=== PATIENT | male | born 1960 | race American Indian/Alaskan Native ===

== ENCOUNTER 2017-06-01 00:39 | Emergency (ER) | payer SELFPAY ==
--- NOTE | 2017-06-01 01:53 | XRay Report ---
FINAL REPORT EXAM: XR FEMUR 2+V LT HISTORY: Status post fall, with left leg pain. TECHNIQUE: Five radiographs of the left femur were obtained. No prior studies are available for comparison. FINDINGS: There is an intramedullary kandice within the left femoral shaft, with 1 distal and 2 proximal interlocking screws. The kandice transfixes a chronic fracture deformity of the proximal to mid femoral shaft, with moderate associated surrounding callus formation. No definite acute fracture is seen. There is no dislocation. There is moderate degenerative change at the left hip joint, with moderate marginal spurring, bony sclerosis, and moderate diffuse joint space narrowing. There are scattered faint vascular calcifications in the medial left thigh. IMPRESSION: 1. Status post placement of intramedullary kandice within the left femoral shaft, in anatomic alignment. 2. Chronic fracture deformity of the proximal to mid femoral shaft, with moderate surrounding callus formation. No definite acute fracture. 3. Moderate left hip osteoarthritis.
--- NOTE | 2017-06-01 01:58 | XRay Report ---
FINAL REPORT EXAM: XR PELVIS 1-2V HISTORY: Pelvic pain, status post fall. TECHNIQUE: A single frontal radiograph the pelvis was obtained. No prior studies are available for comparison. FINDINGS: There is no fracture or dislocation. There is partial visualization of an intramedullary kandice in the left femoral shaft, with 2 proximal interlocking screws. There are moderate degenerative changes at the left hip, with marginal spurring, subchondral cysts, bony sclerosis, and moderate diffuse joint space narrowing. Mild degenerative changes are also seen at the right hip. Mild enthesopathic changes are seen at the lateral aspects of the bilateral iliac bones. IMPRESSION: 1. No fracture or dislocation. 2. Left greater than right hip osteoarthritis.
[2017-06-01] MEDS ORDERED: DELTASONE PO ONE (07:48)
[2017-06-01] MEDS ORDERED: FLEXERIL PO ONE (07:48)
[2017-06-01] MEDS ORDERED: TORADOL IM ONE (07:48)
--- NOTE | 2017-06-01 07:53 | Emergency Department Report ---
HPI - General Chief Complaint: Extremity Injury, Lower Time Seen by Provider: 06/01/17 07:15 - HPI HPI: This is a 56-year-old male with a history of osteoarthritis and status post intramedullary kandice placement of the left femoral shaft presents to ED complaining of pain to his left lateral leg and hip x few weeks. Patient states he was at work when he slipped a couple of weeks ago. Patient states he said some pain to the leg and hand since the incident at work. Patient states he did not fall or sustain any injuries to the leg or hip. She states pain is sharp, throbbing, localized to his left hip as well as his left lateral leg. Patient states he stands a lot at work and this aggravates his hip pain. He denies fever/chills/nausea/vomiting/calf pain or swelling. ED Past Medical Hx - Past Medical History Previous Medical History?: No - Surgical History Past Surgical History?: Yes Additional Surgical History: kandice to left femur. - Social History Smoking Status: Current Every Day Smoker Substance Use Type: Alcohol - Medications Home Medications: Home Medications Medication Instructions Recorded Confirmed Last Taken Type Acetaminophen/Codeine [Tylenol 1 tab PO Q6H PRN #10 tab 06/01/17 Unknown Rx /Codeine # 3 tab] Cyclobenzaprine [Flexeril] 10 mg PO QHS PRN #24 tablet 06/01/17 Unknown Rx Diclofenac Potassium 50 mg PO BID #30 tablet 06/01/17 Unknown Rx ED Review of Systems ROS: Stated complaint: L LEG PAIN Other details as noted in HPI Constitutional: denies: chills, fever Eyes: denies: eye pain, eye discharge, vision change ENT: denies: ear pain, throat pain Respiratory: denies: cough, shortness of breath, wheezing Cardiovascular: denies: chest pain, palpitations Endocrine: no symptoms reported Gastrointestinal: denies: abdominal pain, nausea, diarrhea Genitourinary: denies: urgency, dysuria Musculoskeletal: arthralgia. denies: back pain, joint swelling Skin: denies: rash, lesions Neurological: denies: headache, weakness, paresthesias Psychiatric: denies: anxiety, depression Hematological/Lymphatic: denies: easy bleeding, easy bruising Physical Exam - Physical Exam Vital Signs: Vital Signs 06/01/17 00:44 Pulse Rate 77 Respiratory 18 Rate Blood Pressure 144/95 O2 Sat by Pulse 99 Oximetry Physical Exam: GENERAL: Alert and oriented x3, no apparent distress, Normal Gait, atraumatic. HEAD: Head is normocephalic and a-traumatic. LUNGS: Symetrical with respiration, No wheezing, no rales or crackles, CTAB. HEART: S1, S2 present, regular rate and rhythm without murmur, no rubs, no gallops. Non tender to palpation EXTREMITIES/MUSCULOSKELETAL: No cyanosis, clubbing, rash, lesions or edema. Full ROM bilaterally. UE/LE Pulses 2+ bilaterally. LE and UE 5+ strength bilaterally, straight leg raise positive left sided, all joints are intact, no swelling, calf nontender to palpation bilaterally, Homans sign negative bilaterally NEUROLOGIC: The patient is cooperative with no focal neurologic deficits. Normal speech. Normal sensation in bilateral upper and lower extremities, No loss of sensation, SKIN: Warm and dry, No lesions, No ulceration or induration present. ED Course Vital Signs 06/01/17 00:44 Pulse Rate 77 Respiratory 18 Rate Blood Pressure 144/95 O2 Sat by Pulse 99 Oximetry ED Medical Decision Making - Radiology Data Radiology results: report reviewed, image reviewed FINAL REPORT EXAM: XR PELVIS 1-2V HISTORY: Pelvic pain, status post fall. TECHNIQUE: A single frontal radiograph the pelvis was obtained. No prior studies are available for comparison. FINDINGS: There is no fracture or dislocation. There is partial visualization of an intramedullary kandice in the left femoral shaft, with 2 proximal interlocking screws. There are moderate degenerative changes at the left hip, with marginal spurring, subchondral cysts, bony sclerosis, and moderate diffuse joint space narrowing. Mild degenerative changes are also seen at the right hip. Mild enthesopathic changes are seen at the lateral aspects of the bilateral iliac bones. IMPRESSION: 1. No fracture or dislocation. 2. Left greater than right hip osteoarthritis. Transcribed By: [facility] Dictated By: MEL CASTRO MD Electronically Authenticated By: MEL CASTRO MD Signed Date/Time: 05/31/17 0794 - Medical Decision Making 56-year-old male presents to ED with chronic pain ED course: Patient received Toradol, Flexeril and prednisone in ED Femur x-ray in hip x-rays were obtained: see findings above Discussed the findings with the patient. Discussed the patient to follow up with an orthopedic/primary care physician to manage his osteoarthritis and chronic pain Vital signs are normalized and he is in no acute distress. Discussed with patient if symptoms worsen or new symptoms arise to return to ED Critical care attestation.: If time is entered above; I have spent that time in minutes in the direct care of this critically ill patient, excluding procedure time. ED Disposition Clinical Impression: Arthralgia of hip, left Osteoarthritis Qualifiers: Osteoarthritis location: hip Osteoarthritis type: unspecified Laterality: left Qualified Code(s): M16.12 - Unilateral primary osteoarthritis, left hip Disposition: TO HOME OR SELFCARE Is pt being admited?: No Does the pt Need Aspirin: No Condition: Stable Instructions: Lumbar Radiculopathy (ED), Arthralgia (ED) Additional Instructions: Take medication as prescribed Follow-up with orthopedics as referred for management Is any worsening symptoms or new symptoms develop return to ED Prescriptions: Cyclobenzaprine [Flexeril] 10 mg PO QHS PRN #24 tablet PRN Reason: Muscle Spasm Acetaminophen/Codeine [Tylenol /Codeine # 3 tab] 1 tab PO Q6H PRN #10 tab PRN Reason: Pain Diclofenac Potassium 50 mg PO BID #30 tablet Referrals: PRIMARY CAREMD [Primary Care Provider] - 3-5 Days ORLANDO MAJOR MD [Staff Physician] - 3-5 Days TANIA MAJOR MD [Referring] - 3-5 Days [facility] [Outside] - 3-5 Days [facility] [Outside] - 3-5 Days Forms: Work/School Release Form(ED) Time of Disposition: 08:09
[2017-06-01 08:31] VITALS: BP 120/99
== END 2017-06-01 08:33 | disposition home or self-care (01) ==
LOC: ED 00:39
DX: M16.12 Unilateral primary osteoarthritis, left hip (principal); F17.200 Nicotine dependence, unspecified, uncomplicated; W01.0XXA Fall on same level from slipping, tripping and stumbling without subsequent striking against object, initial encounter; Y93.89 Activity, other specified; Y92.89 Other specified places as the place of occurrence of the external cause; Y99.8 Other external cause status
CPT/HCPCS: 72170; 73552; 96372; 99283; J1885; J7512

== ENCOUNTER 2017-07-30 07:16 | Emergency (ER) | payer OTHER ==
[2017-07-30 07:27] VITALS: BP 147/77
[2017-07-30] MEDS ORDERED: PERCOCET 5/325 PO ONE (08:51)
[2017-07-30] MEDS ORDERED: TORADOL IM ONE (08:51)
--- NOTE | 2017-07-30 09:14 | Emergency Department Report ---
ED Lower Extremity HPI - General Chief Complaint: Pain General Stated Complaint: HIP PAIN Time Seen by Provider: 07/30/17 08:50 Source: patient Mode of arrival: Ambulatory Limitations: No Limitations - History of Present Illness Initial Comments: Reports injuring L hip a couple months ago and pain flared last night. No new trauma. Intermittent radiation down leg. No back pain. No numbness. MD Complaint: hip injury -: month(s) Injury: Hip: Left Type of Injury: unknown Place: home Severity: moderate Severity scale (0 -10): 7 Improves With: immobilization Worsens With: movement Context: fall Associated Symptoms: denies: swelling, numbness, tingling - Related Data Previous Rx's Medication Instructions Recorded Last Taken Type Acetaminophen/Codeine [Tylenol 1 tab PO Q6H PRN #10 tab 06/01/17 Unknown Rx /Codeine # 3 tab] Cyclobenzaprine [Flexeril] 10 mg PO QHS PRN #24 tablet 06/01/17 Unknown Rx Diclofenac Potassium 50 mg PO BID #30 tablet 07/30/17 Unknown Rx oxyCODONE /ACETAMINOPHEN [Percocet 1 tab PO Q6HR PRN #12 tablet 07/30/17 Unknown Rx 5/325] Allergies Allergy/AdvReac Type Severity Reaction Status Date / Time No Known Allergies Allergy Verified 07/30/17 07:21 ED Review of Systems ROS: Stated complaint: HIP PAIN Other details as noted in HPI Comment: All other systems reviewed and negative Constitutional: denies: chills, fever Eyes: denies: eye pain, eye discharge, vision change ENT: denies: ear pain, throat pain Respiratory: denies: cough, shortness of breath, wheezing Cardiovascular: denies: chest pain, palpitations Endocrine: no symptoms reported Gastrointestinal: denies: abdominal pain, nausea, diarrhea Genitourinary: denies: urgency, dysuria Musculoskeletal: as per HPI, arthralgia. denies: back pain, joint swelling Skin: denies: rash, lesions Neurological: denies: headache, weakness, paresthesias Psychiatric: denies: anxiety, depression Hematological/Lymphatic: denies: easy bleeding, easy bruising ED Past Medical Hx - Past Medical History Previous Medical History?: No - Surgical History Past Surgical History?: Yes Additional Surgical History: [place] to left femur. - Social History Smoking Status: Current Every Day Smoker Substance Use Type: None - Medications Home Medications: Home Medications Medication Instructions Recorded Confirmed Last Taken Type Acetaminophen/Codeine [Tylenol 1 tab PO Q6H PRN #10 tab 06/01/17 Unknown Rx /Codeine # 3 tab] Cyclobenzaprine [Flexeril] 10 mg PO QHS PRN #24 tablet 06/01/17 Unknown Rx Diclofenac Potassium 50 mg PO BID #30 tablet 07/30/17 Unknown Rx oxyCODONE /ACETAMINOPHEN [Percocet 1 tab PO Q6HR PRN #12 tablet 07/30/17 Unknown Rx 5/325] ED Physical Exam - General Limitations: No Limitations General appearance: alert, in no apparent distress - Head Head exam: Present: atraumatic, normocephalic - Eye Eye exam: Present: normal appearance, PERRL, EOMI - ENT ENT exam: Present: mucous membranes moist - Neck Neck exam: Present: normal inspection - Respiratory Respiratory exam: Present: normal lung sounds bilaterally. Absent: respiratory distress - Cardiovascular Cardiovascular Exam: Present: regular rate, normal rhythm. Absent: systolic murmur, diastolic murmur, rubs, gallop - GI/Abdominal GI/Abdominal exam: Present: soft, normal bowel sounds - Rectal Rectal exam: Present: deferred - Extremities Exam Extremities exam: Present: normal inspection, other (painful but full ROM to L hip. Exam otherwise normal. CMS intact. ) - Back Exam Back exam: Present: normal inspection - Neurological Exam Neurological exam: Present: alert, oriented X3 - Psychiatric Psychiatric exam: Present: normal affect, normal mood - Skin Skin exam: Present: warm, dry, intact, normal color. Absent: rash ED Course Vital Signs 07/30/17 07:19 Temperature 98.2 F Pulse Rate 73 Respiratory 18 Rate Blood Pressure 147/77 O2 Sat by Pulse 97 Oximetry - Reevaluation(s) Reevaluation #1: 07/30/17 10:23 Pt is in NAD and stable for d/c. ED Lower Extremity MDM - Radiology Data Radiology results: report reviewed possible early AVN - Medical Decision Making Imaging shows possible early AVN. Pt reports he has been having pain and is supposed to be having an MRI but has not done so yet. Percocet/Toradol. provided complete pain relief. Discussed results and importance of close follow up. - Differential Diagnosis arthritis, AVN Critical care attestation.: If time is entered above; I have spent that time in minutes in the direct care of this critically ill patient, excluding procedure time. ED Disposition Clinical Impression: Left hip pain, AVN (avascular necrosis of bone) Disposition: TO HOME OR SELFCARE Is pt being admited?: No Condition: Stable Instructions: Arthralgia (ED) Prescriptions: Diclofenac Potassium 50 mg PO BID #30 tablet oxyCODONE /ACETAMINOPHEN [Percocet 5/325] 1 tab PO Q6HR PRN #12 tablet PRN Reason: Pain Referrals: PRIMARY CARE, [Primary Care Provider] - 3-5 Days ORLANDO MAJOR MD [Staff Physician] - 2-3 Days Time of Disposition: 10:26
--- NOTE | 2017-07-30 09:57 | XRay Report ---
LEFT HIP, 2 VIEWS History: Left hip pain after fall. Findings: Compared to left femur films dated 06/01/17. Bone mineralization is normal. There are moderate osteoarthritic changes at the left hip. There is sclerosis of the superior left femoral head which could represent early osteonecrosis. There is no evidence for fracture or malalignment. Intramedullary kandice within the left femur securing a proximal left femur fracture is noted. The proximal femur fracture appears to be remodeling with signs of healing since the previous exam. Impression: Moderate osteoarthritic changes at the left hip. Question early osteonecrosis the left femoral head. No acute injury identified.
== END 2017-07-30 10:40 | disposition home or self-care (01) ==
LOC: ED 07:16
DX: M87.88 Other osteonecrosis, other site (principal); F17.210 Nicotine dependence, cigarettes, uncomplicated
CPT/HCPCS: 73502; 96372; 99283; J1885

== ENCOUNTER 2017-09-09 08:12 | Emergency (ER) | payer SELFPAY ==
[2017-09-09 08:42] VITALS: BP 134/94
[2017-09-09] MEDS ORDERED: NORCO 5/325 PO ONE (09:23)
[2017-09-09] MEDS ORDERED: FLEXERIL PO ONE (09:23)
--- NOTE | 2017-09-09 09:24 | Emergency Department Report ---
ED Lower Extremity HPI - General Chief Complaint: Extremity Injury, Lower Stated Complaint: L HIP PAIN Time Seen by Provider: 09/09/17 08:55 Source: patient, old records reviewed Mode of arrival: Ambulatory (w limp) Limitations: Physical Limitation - History of Present Illness MD Complaint: hip injury, fall -: Sudden (fall at work in May) Injury: Hip: Left Type of Injury: blunt Place: work Improves With: nothing Worsens With: weight bearing, movement Context: fall Associated Symptoms: unable to bear weight (wo pain), ambulatory (w limp), other (lip). denies: snap/pop sensation, swelling, numbness, tingling Treatments Prior to Arrival: cold therapy, NSAIDS, other (er visit; ortho visit ; work comp md visit; still w terrible pain to r hip) - Related Data Previous Rx's Medication Instructions Recorded Last Taken Type Cyclobenzaprine [Flexeril] 10 mg PO BID PRN #12 tablet 09/09/17 Unknown Rx HYDROcodone/APAP 5-325 [[place] 1 each PO Q6HR PRN #10 tablet 09/09/17 Unknown Rx 5/325] Allergies Allergy/AdvReac Type Severity Reaction Status Date / Time No Known Allergies Allergy Verified 07/30/17 07:21 ED Review of Systems ROS: Stated complaint: L HIP PAIN Other details as noted in HPI Comment: All other systems reviewed and negative Musculoskeletal: other (l hip pain since may 2017) ED Past Medical Hx - Past Medical History Previous Medical History?: Yes Hx Hypertension: Yes - Surgical History Additional Surgical History: [place] to left femur. p fx 6 y ago; until time of fall in May it has not given him problems. - Social History Smoking Status: Current Every Day Smoker Substance Use Type: Alcohol (social only) - Medications Home Medications: Home Medications Medication Instructions Recorded Confirmed Last Taken Type Cyclobenzaprine [Flexeril] 10 mg PO BID PRN #12 tablet 09/09/17 Unknown Rx HYDROcodone/APAP 5-325 [[place] 1 each PO Q6HR PRN #10 tablet 09/09/17 Unknown Rx 5/325] ED Physical Exam - General Limitations: Physical Limitation General appearance: alert - Head Head exam: Present: atraumatic - Eye Eye exam: Present: PERRL, EOMI - ENT ENT exam: Present: mucous membranes moist - Neck Neck exam: Present: normal inspection - Respiratory Respiratory exam: Present: normal lung sounds bilaterally - Cardiovascular Cardiovascular Exam: Present: regular rate - GI/Abdominal GI/Abdominal exam: Present: soft - Extremities Exam Extremities exam: Present: full ROM (pain w any weight bearing or movement of r hip), normal capillary refill. Absent: pedal edema, joint swelling, calf tenderness - Expanded Lower Extremity Exam Left Hip exam: Present: tenderness. Absent: full ROM (limited abduction; limited movement by pain), swelling, abrasion, laceration, ecchymosis, deformity, crepidus, dislocation, erythema, external rotation, internal rotation, shortening, pelvic stability Upper Leg exam: Present: normal inspection, deformity (SCAR). Absent: full ROM , tenderness, swelling, abrasion, laceration, ecchymosis, crepidus, dislocation , erythema - Back Exam Back exam: Present: normal inspection - Neurological Exam Neurological exam: Present: alert, oriented X3, CN II-XII intact, normal gait, reflexes normal - Psychiatric Psychiatric exam: Present: normal affect, normal mood - Skin Skin exam: Present: warm, dry, intact, normal color ED Course Vital Signs 09/09/17 09/09/17 08:36 08:41 Temperature 97.9 F 97.9 F Pulse Rate 90 90 Respiratory 20 20 Rate Blood Pressure 134/94 Blood Pressure 134/94 [Left] O2 Sat by Pulse 99 99 Oximetry - Reevaluation(s) Reevaluation #1: PT TO ER W SEVERE HIP PAIN HE HAS HAD SURG IN PAST AND WAS IN HIS USUAL STATE OF HEALTH UNTIL HE HAD A FALL AT WORK. SURG WAS TO FEMUR 6 Y AGO HE HAS BEEN SEEN HERE FOR THIS FALL SEVERAL TIMES PRIOR TO FALL PT WORKED AND DID NOT USE CANE; AND DID NOT HAVE DAILY PAIN PER PT NOW HE IS USING CANE. SITTING IN CHAIR IN GUARDED POSITION AND GRIMACES WITH ANY MOVEMENT XRAY NOTED CT COMPLETED DISCUSSED WITH DR MCKINLEY DISCUSSED WITH DR MAJOR WHO REVIEWED THE CT- DJD, SPURS, SCLEROTIC HEAD, SUBCOND CYST, MINIMAL JOINT SPACE; NO ACUTE FX PER DR MAJOR PT WAS MEDICATED WHILE HERE WITH MINIMAL RELIEF DR MAJOR WILL SEE IN THE OFFICE DC HOME W DC POC. 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 see note - Differential Diagnosis ro acute fracture Critical care attestation.: If time is entered above; I have spent that time in minutes in the direct care of this critically ill patient, excluding procedure time. ED Disposition Clinical Impression: Hip pain Disposition: DC- TO HOME OR SELFCARE Is pt being admited?: No Does the pt Need Aspirin: No Condition: Stable Instructions: Arthralgia (ED) Additional Instructions: MEDS ORDERED TODAY FOLLOW UP WITH DR MAJOR- HIS OFFICE IS EXPECTING YOU TO CALL REST Prescriptions: Cyclobenzaprine [Flexeril] 10 mg PO BID PRN #12 tablet PRN Reason: Pain HYDROcodone/APAP 5-325 [[place] 5/325] 1 each PO Q6HR PRN #10 tablet PRN Reason: Pain Referrals: PRIMARY CAREMD [Primary Care Provider] - 3-5 Days ORLANDO MAJOR MD [Staff Physician] - 3-5 Days TC ESCALANTE MD [Staff Physician] - 3-5 Days Forms: Work/School Release Form(ED) Time of Disposition: 10:27
--- NOTE | 2017-09-09 09:24 | XRay Report ---
LEFT HIP, 2 views: History: Left hip pain. No significant change is appreciated since 07/30/17. There are moderate osteoarthritic changes of the left hip. No evidence for fracture or malalignment. Possible AVN findings are stable. Partially imaged is an intramedullary kandice within the left femoral shaft. IMPRESSION: Osteoarthritic changes at the left hip. No change since 07/30/17.
--- NOTE | 2017-09-09 09:58 | Cat Scan Report ---
CT LOWER EXTREMITY LEFT WITHOUT CONTRAST History: Left hip pain, progressive. Technique: Helical CT through the pelvis and left hip with sagittal and coronal reformatted images. Findings: The correlation is made to previous x-rays of the left hip. CT demonstrates moderate osteoarthritic changes at the left hip. There is joint space narrowing, osteophyte formation and subchondral cyst formation. There is also a 1 x 2 cm area of sclerosis in the left femoral head consistent with osteonecrosis. There is no evidence for fracture, dislocation or suspicious bone lesion. The pelvic bones are intact. The soft tissues are within normal limits. An internally fixated left femoral shaft fracture is remodeling. Impression: Moderate osteoarthritic changes at the left hip. Focal avascular necrosis the left femoral head. No acute process identified.
[2017-09-09 10:07] LABS: Basophils # (Auto) 0.1 K/mm3 (0.0-0.1); Basophils % (Auto) 0.7 % (0.0-1.8); Eosinophils # (Auto) 0.1 K/mm3 (0.0-0.4); Eosinophils % (Auto) 0.6 % (0.0-4.3); Hematocrit 40.4 % (35.5-45.6); Hemoglobin 13.5 gm/dl (11.8-15.2); Lymphocytes # (Auto) 2.4 K/mm3 (1.2-5.4); Lymphocytes % (Auto) 30.1 % (13.4-35.0); Mean Corpuscular HGB Conc 34 % (32-34); Mean Corpuscular Hemoglobin 29 pg (28-32); Mean Corpuscular Volume 85 fl (84-94); Monocytes # (Auto) 0.5 K/mm3 (0.0-0.8); Monocytes % (Auto) 6.3 % (0.0-7.3); Platelet Count 211 K/mm3 (140-440); Red Blood Count 4.73 M/mm3 (3.65-5.03); Red Cell Distribution Width 16.2 % (13.2-15.2)
[2017-09-09] MEDS ORDERED: DELTASONE PO ONE (10:15)
[2017-09-09 10:26] LABS: Alanine Aminotransferase 15 units/L (7-56); Albumin 4.4 g/dL (3.9-5); BUN/Creatinine Ratio 13; Blood Urea Nitrogen 13 mg/dL (9-20); Calcium 9.8 mg/dL (8.4-10.2); Hemolysis Index 6
== END 2017-09-09 12:09 | disposition home or self-care (01) ==
LOC: ED 08:12
DX: M25.552 Pain in left hip (principal); I10 Essential (primary) hypertension; F17.200 Nicotine dependence, unspecified, uncomplicated; Z98.890 Other specified postprocedural states; W19.XXXA Unspecified fall, initial encounter
CPT/HCPCS: 36415; 73502; 73700; 80053; 85025; 99284; J7512

== ENCOUNTER 2017-10-05 10:42 | Emergency (ER) | payer OTHER ==
[2017-10-05 11:03] VITALS: BP 136/84
[2017-10-05 11:25] LABS: Basophils % (Auto) 0.6 % (0.0-1.8); Eosinophils # (Auto) 0.1 K/mm3 (0.0-0.4); Eosinophils % (Auto) 1.1 % (0.0-4.3); Hematocrit 39.3 % (35.5-45.6); Hemoglobin 13.1 gm/dl (11.8-15.2); Lymphocytes # (Auto) 2.8 K/mm3 (1.2-5.4); Lymphocytes % (Auto) 35.3 % (13.4-35.0); Mean Corpuscular HGB Conc 33 % (32-34); Mean Corpuscular Hemoglobin 29 pg (28-32); Mean Corpuscular Volume 86 fl (84-94); Monocytes # (Auto) 0.7 K/mm3 (0.0-0.8); Monocytes % (Auto) 8.8 % (0.0-7.3); Platelet Count 200 K/mm3 (140-440); Red Blood Count 4.55 M/mm3 (3.65-5.03); Red Cell Distribution Width 16.1 % (13.2-15.2)
--- NOTE | 2017-10-05 11:30 | XRay Report ---
ROUTINE CHEST, TWO VIEWS: HISTORY: Shortness of breath. The trachea, heart, mediastinal contour, lung gonzalez and bony thorax are unremarkable. IMPRESSION: Unremarkable chest x-ray.
[2017-10-05 11:44] LABS: BUN/Creatinine Ratio 11; Blood Urea Nitrogen 11 mg/dL (9-20); Calcium 9.2 mg/dL (8.4-10.2); Hemolysis Index 8
== END 2017-10-05 17:12 | disposition left against medical advice (07) ==
LOC: ED 10:42
DX: R07.9 Chest pain, unspecified (principal); Z53.21 Procedure and treatment not carried out due to patient leaving prior to being seen by health care provider
CPT/HCPCS: 36415; 71046; 80048; 84484; 85025; 93005; 93010

== ENCOUNTER 2017-10-13 08:54 | Emergency (ER) | payer SELFPAY ==
[2017-10-13 09:14] VITALS: BP 146/100
== END 2017-10-13 14:38 ==
LOC: ED 08:54
DX: R05 Cough (principal); Z53.21 Procedure and treatment not carried out due to patient leaving prior to being seen by health care provider

== ENCOUNTER 2018-01-04 09:17 | Emergency (ER) | payer OTHER ==
[2018-01-04] MEDS ORDERED: TORADOL IM ONE (10:22)
--- NOTE | 2018-01-04 10:26 | Emergency Department Report ---
ED Extremity Problem HPI - General Chief complaint: Extremity Injury, Lower Stated complaint: HIP PAIN Time Seen by Provider: 01/04/18 10:15 Source: patient Mode of arrival: Ambulatory Limitations: No Limitations - History of Present Illness Initial comments: Patient is a 57-year-old -[place] male who is presenting with left hip pain. Patient has pain is constant in the left hip is states is a 10 out of 10 and however he is able to bear weight and walk therefore I do question his pain rating. Patient states he injured his left hip at work parking 5 months ago. Patient has been [place] disability doctor who does not have him on any pain meds. He has not had any physical therapy. Patient did see her orthopedic doctor was told he needed a hip replacement which is still pending. Patient states there is been no new injuries to the left hip and that he is here just mainly for pain control. - Related Data Previous Rx's Medication Instructions Recorded Last Taken Type Cyclobenzaprine [Flexeril] 10 mg PO BID PRN #12 tablet 09/09/17 Unknown Rx HYDROcodone/APAP 5-325 [Victor 1 each PO Q6HR PRN #10 tablet 09/09/17 Unknown Rx 5/325] Ibuprofen [Motrin] 600 mg PO Q8H PRN #20 tablet 01/04/18 Unknown Rx Allergies Allergy/AdvReac Type Severity Reaction Status Date / Time No Known Allergies Allergy Verified 01/04/18 09:20 ED Review of Systems ROS: Stated complaint: HIP PAIN Other details as noted in HPI Comment: All other systems reviewed and negative ED Past Medical Hx - Past Medical History Hx Hypertension: Yes - Surgical History Additional Surgical History: [place] to left femur. p fx 6 y ago; until time of fall in May it has not given him problems. - Social History Smoking Status: Current Every Day Smoker Substance Use Type: None - Medications Home Medications: Home Medications Medication Instructions Recorded Confirmed Last Taken Type Cyclobenzaprine [Flexeril] 10 mg PO BID PRN #12 tablet 09/09/17 Unknown Rx HYDROcodone/APAP 5-325 [Victor 1 each PO Q6HR PRN #10 tablet 09/09/17 Unknown Rx 5/325] Ibuprofen [Motrin] 600 mg PO Q8H PRN #20 tablet 01/04/18 Unknown Rx ED Physical Exam - General Limitations: No Limitations General appearance: alert, in no apparent distress - Head Head exam: Present: atraumatic, normocephalic - Eye Eye exam: Present: normal appearance - ENT ENT exam: Present: mucous membranes moist - Neck Neck exam: Present: normal inspection - Respiratory Respiratory exam: Present: normal lung sounds bilaterally. Absent: respiratory distress, wheezes, rales, rhonchi - Cardiovascular Cardiovascular Exam: Present: regular rate, normal rhythm. Absent: systolic murmur, diastolic murmur, rubs, gallop - GI/Abdominal GI/Abdominal exam: Present: soft, normal bowel sounds - Rectal Rectal exam: Present: deferred - Extremities Exam Extremities exam: Present: normal inspection, full ROM, tenderness (at the left hip there is tenderness to palpation. There is no erythema or rash under overlie scan. Patient is able to bear weight.) - Back Exam Back exam: Present: normal inspection - Neurological Exam Neurological exam: Present: alert, oriented X3 - Psychiatric Psychiatric exam: Present: normal affect, normal mood - Skin Skin exam: Present: warm, dry, intact, normal color. Absent: rash ED Course Vital Signs 01/04/18 09:21 Temperature 98.4 F Pulse Rate 60 Respiratory 16 Rate Blood Pressure 172/100 O2 Sat by Pulse 100 Oximetry ED Medical Decision Making - Medical Decision Making Patient was deemed a nonmedical emergency however the patient does have [employer] insurance and is elected to stay here hospital for treatment. I did explain to the patient that were not able to give narcotics for his chronic condition. Patient voiced understanding. Patient was given a Toradol shot and will be discharged home with Motrin. Critical care attestation.: If time is entered above; I have spent that time in minutes in the direct care of this critically ill patient, excluding procedure time. ED Disposition Clinical Impression: Hip arthritis Disposition: DC-01 TO HOME OR SELFCARE Is pt being admited?: No Does the pt Need Aspirin: No Condition: Stable Instructions: Osteoarthritis (ED) Prescriptions: Ibuprofen [Motrin] 600 mg PO Q8H PRN #20 tablet PRN Reason: Pain Referrals: KEVIN PALOMINO MD [Staff Physician] - 7-10 days (for primary care) ORLANDO MAJOR MD [Staff Physician] - 7-10 days (Orthopedic referral)
[2018-01-04 10:45] VITALS: BP 149/92
== END 2018-01-04 10:46 | disposition home or self-care (01) ==
LOC: ED 09:17
DX: M16.12 Unilateral primary osteoarthritis, left hip (principal); I10 Essential (primary) hypertension; F17.200 Nicotine dependence, unspecified, uncomplicated
CPT/HCPCS: 96372; 99282; J1885

== ENCOUNTER 2018-02-22 12:24 | Outpatient (CLI) | payer MEDICAID ==
--- NOTE | 2018-02-22 13:03 | XRay Report ---
ROUTINE CHEST, TWO VIEWS: HISTORY: Dysphagia unspecified. The trachea, heart, mediastinal contour, lung gonzalez and bony thorax are unremarkable. No change since 10/05/17. IMPRESSION: Unremarkable chest x-ray.
== END 2018-02-22 12:25 | disposition home or self-care (01) ==
LOC: XRAY 12:24
PROVIDERS: ATTEND Nurse Practitioner
DX: R13.10 Dysphagia, unspecified (principal); F17.210 Nicotine dependence, cigarettes, uncomplicated; I10 Essential (primary) hypertension
CPT/HCPCS: 71046

== ENCOUNTER 2018-04-05 12:21 | Outpatient (CLI) | payer MEDICAID ==
--- NOTE | 2018-04-05 14:44 | XRay Report ---
Bilateral feet: Bilateral foot pain. Routine 3 views are obtained bilaterally. The bones are well-mineralized and there is normal alignment and preservation of the joint. No swelling identified. Impression: Unremarkable exam for age. No evidence of arthritis.
== END 2018-04-05 12:22 | disposition home or self-care (01) ==
LOC: XRAY 12:21
PROVIDERS: ATTEND Nurse Practitioner
DX: M25.571 Pain in right ankle and joints of right foot (principal); L84 Corns and callosities; B35.1 Tinea unguium; I10 Essential (primary) hypertension; M16.12 Unilateral primary osteoarthritis, left hip; F17.210 Nicotine dependence, cigarettes, uncomplicated

== ENCOUNTER 2018-11-10 10:23 | Observation (INO) | payer MEDICAID ==
[2018-11-10 11:48] LABS: Basophils % (Auto) 0.7 % (0.0-1.8); Eosinophils % (Auto) 0.7 % (0.0-4.3); Hematocrit 37.4 % (35.5-45.6); Hemoglobin 12.5 gm/dl (11.8-15.2); Lymphocytes # (Auto) 2.3 K/mm3 (1.2-5.4); Lymphocytes % (Auto) 33.1 % (13.4-35.0); Mean Corpuscular HGB Conc 33 % (32-34); Mean Corpuscular Volume 84 fl (84-94); Monocytes # (Auto) 0.6 K/mm3 (0.0-0.8); Monocytes % (Auto) 9.2 % (0.0-7.3); Platelet Count 229 K/mm3 (140-440); Red Blood Count 4.44 M/mm3 (3.65-5.03); Red Cell Distribution Width 16.6 % (13.2-15.2)
[2018-11-10 12:05] LABS: BUN/Creatinine Ratio 9; Blood Urea Nitrogen 7 mg/dL (9-20); Calcium 9.1 mg/dL (8.4-10.2); Hemolysis Index 5
[2018-11-10] MEDS ORDERED: BABY ASPIRIN PO ONE (12:41)
--- NOTE | 2018-11-10 13:07 | Emergency Department Report ---
ED Chest Pain HPI - General Chief Complaint: Chest Pain Stated Complaint: CHEST PAIN/SOB Time Seen by Provider: 11/10/18 12:35 Source: patient Mode of arrival: Ambulatory Limitations: No Limitations - History of Present Illness Initial Comments: 58-year-old -[place] male presents to the emergency department with complaint of some shortness of breath and chest pain that has been going on since last evening. The chest pain is left-sided and started off as intermittent but has been consistent since earlier this morning. He took some aspirin last night without any relief. He denies any fever, nausea, vomiting, back pain or diaphoresis. He has a past medical history of ggx-sodknlh-nurixqczh diabetes, high cholesterol and hypertension. He is a tobacco smoker but denies any illicit drug use or abuse. No recent travel or sick contacts at home. Severity scale (0 -10): 9 - Related Data Home Medications Medication Instructions Recorded Confirmed Last Taken Atorvastatin Calcium [Lipitor] 40 mg PO HS 11/10/18 11/10/18 11/09/18 Metformin HCl [Metformin HCl ER] 500 mg PO QPM 11/10/18 11/10/18 11/09/18 Allergies Allergy/AdvReac Type Severity Reaction Status Date / Time No Known Allergies Allergy Verified 01/04/18 09:20 Heart Score - HEART Score History: Moderately suspicious EKG: Normal Age: 45-65 Risk factors: > 3 risk factors or hx of atherosclerotic disease Troponin: < normal limit HEART Score: 4 - Critical Actions Critical Actions: 4-6 pts:12-16.6% risk of adverse cardiac event. Should be admitted ED Review of Systems ROS: Stated complaint: CHEST PAIN/SOB Other details as noted in HPI Comment: All other systems reviewed and negative Constitutional: denies: chills, fever Eyes: denies: eye pain, vision change ENT: denies: ear pain, throat pain Respiratory: shortness of breath. denies: cough Cardiovascular: chest pain. denies: edema Gastrointestinal: denies: abdominal pain, vomiting Genitourinary: denies: dysuria, discharge Musculoskeletal: denies: back pain, arthralgia Skin: denies: rash, lesions Neurological: denies: headache, weakness ED Past Medical Hx - Past Medical History Previous Medical History?: Yes Hx Hypertension: Yes Hx Diabetes: Yes - Surgical History Past Surgical History?: Yes Additional Surgical History: [place] to left femur. p fx 6 y ago; until time of fall in May it has not given him problems. - Social History Smoking Status: Current Every Day Smoker Substance Use Type: None - Medications Home Medications: Home Medications Medication Instructions Recorded Confirmed Last Taken Type Atorvastatin Calcium [Lipitor] 40 mg PO HS 11/10/18 11/10/18 11/09/18 History Metformin HCl [Metformin HCl ER] 500 mg PO QPM 11/10/18 11/10/18 11/09/18 History ED Physical Exam - General Limitations: No Limitations - Other Other exam information: GENERAL: The patient is well-developed well-nourished. HEENT: Normocephalic. Atraumatic. Patient has moist mucous membranes. EYES: Extraocular motions are intact. Pupils are equal and reactive to light bilaterally. NECK: Supple. Trachea is midline. CHEST/LUNGS: Clear to auscultation. There is no respiratory distress noted. Chest pain is not reproducible to palpation of the chest wall. HEART/CARDIOVASCULAR: Regular. There is no tachycardia. There is no obvious murmur. ABDOMEN: Abdomen is soft, nontender. Patient has normal bowel sounds. There is no abdominal distention. SKIN: Skin is warm and dry. NEURO: The patient is awake, alert, and oriented. The patient is cooperative. The patient has no focal neurologic deficits. The patient has normal speech. MUSCULOSKELETAL: There is no tenderness or deformity. There is no limitation range of motion. There is no evidence of acute injury. ED Course Vital Signs 11/10/18 11/10/18 10:39 15:00 Temperature 97.9 F 98.2 F Pulse Rate 89 54 L Respiratory 20 16 Rate Blood Pressure 152/89 145/76 Blood Pressure 145/76 [Left] O2 Sat by Pulse 98 98 Oximetry ROBERTO score - Roberto Score Age > 65: (0) No Aspirin use within the Past 7 Days: (1) Yes 3 or more CAD Risk Factors: (1) Yes 2 or more Angina events in past 24 hrs: (1) Yes Known CAD with more than 50% Stenosis: (0) No Elevated Cardiac Markers: (0) No ST Deviation Greater than 0.5mm: (0) No ROBERTO Score: 3 ED Medical Decision Making - Lab Data Result diagrams: 11/10/18 11:30 11/10/18 11:30 - EKG Data -: EKG Interpreted by Me EKG shows normal: sinus rhythm, axis, intervals, QRS complexes, ST-T waves Rate: normal - EKG Data When compared to previous EKG there are: previous EKG unavailable Interpretation: normal EKG - Radiology Data Radiology results: image reviewed interpreted by me: Chest x-ray does not show any pneumothorax, pleural effusion, pneumonia or obv ious focal consolidation. - Medical Decision Making Patient presents to the emergency department with left-sided chest pain that's been going on since last night but has become more constant, associated with some shortness of breath. EKG is normal without ST elevation OH, ischemia or dysrhythmia. Chest x-ray did not show any pleural effusions, pneumonia, pn eumothorax, focal consolidation, or any other acute process. The patient's labs have been unremarkable thus far. However the patient has multiple comorbidities and/or risk factors for coronary artery disease including diabetes, hypertension, hyperlipidemia and tobacco use. He continues to have le ft-sided chest pain. He has never had a stress test. For these reasons, the patient will be admitted to the hospital for further evaluation and treatment and was accepted for admission by the hospitalist, Dr. Posadas. - Differential Diagnosis OH, costochondritis, PE, pneumonia Critical Care Time: No Critical care attestation.: If time is entered above; I have spent that time in minutes in the direct care of this critically ill patient, excluding procedure time. ED Disposition Clinical Impression: Acute chest pain Hypertension Qualifiers: Hypertension type: essential hypertension Qualified Code(s): I10 - Essential (primary) hypertension Disposition: OP ADMIT IP TO THIS HOSP Is pt being admited?: Yes Condition: Stable Time of Disposition: 14:19
--- NOTE | 2018-11-10 13:13 | XRay Report ---
CHEST 2 VIEWS INDICATION: Chest pain. COMPARISON: 02/22/2018 FINDINGS: PA and lateral chest radiographs again demonstrate normal cardiomediastinal silhouette and clear lungs. Multilevel spinal degenerative changes and stable left shoulder surgical devices. CONCLUSION: No acute chest process or significant interval change, as described. Thank you for the opportunity to participate in this patient's care.
[2018-11-10] MEDS: NACL 0.9% 1000 ML 1,000 ML IV SCH (17:13)
--- NOTE | 2018-11-10 22:47 | Event Note ---
Date: 11/10/18 See H/p in reports Chest pain--R/o WI HtN HLD T2dm
[2018-11-10] MEDS ORDERED: SODIUM CHLORIDE FLUSH SYRINGE 10 ML IV PRN (22:49)
[2018-11-10] MEDS ORDERED: TYLENOL PO PRN (22:49)
[2018-11-10] MEDS ORDERED: ZOFRAN IV PRN (22:49)
[2018-11-10] MEDS ORDERED: DILAUDID IV PRN (22:49)
[2018-11-10] MEDS ORDERED: PERCOCET 5/325 PO PRN (22:49)
[2018-11-11] MEDS: NACL 0.9% 1000 ML 1,000 ML IV SCH (00:29)
[2018-11-11] MEDS: PEPCID IV SCH ×2 (00:29→10:44)
[2018-11-11 06:44] LABS: Basophils % (Auto) 0.4 % (0.0-1.8); Eosinophils # (Auto) 0.1 K/mm3 (0.0-0.4); Eosinophils % (Auto) 1.3 % (0.0-4.3); Hematocrit 35.7 % (35.5-45.6); Lymphocytes # (Auto) 2.7 K/mm3 (1.2-5.4); Lymphocytes % (Auto) 42.3 % (13.4-35.0); Mean Corpuscular HGB Conc 34 % (32-34); Mean Corpuscular Volume 84 fl (84-94); Monocytes # (Auto) 0.6 K/mm3 (0.0-0.8); Monocytes % (Auto) 8.6 % (0.0-7.3); Platelet Count 211 K/mm3 (140-440); Red Blood Count 4.23 M/mm3 (3.65-5.03); Red Cell Distribution Width 16.4 % (13.2-15.2)
[2018-11-11 07:06] LABS: Alanine Aminotransferase 17 units/L (7-56); Albumin 3.6 g/dL (3.9-5); BUN/Creatinine Ratio 10; Blood Urea Nitrogen 8 mg/dL (9-20); Calcium 8.7 mg/dL (8.4-10.2); Hemolysis Index 19
--- NOTE | 2018-11-11 07:23 | History and Physical Report ---
CHIEF COMPLAINT: Left-sided chest pain since last night. HISTORY OF PRESENT ILLNESS: A 58-year-old -[place] male with history of hypertension, diabetes, and hyperlipidemia, comes in for left-sided discomfort from yesterday evening. Pain is left-sided and intermittent. It has been more constant since morning. Pain is about 6 on a scale of 1-10. No fever. No diaphoresis, no palpitations, no shortness of breath. The patient smokes over a pack a day. He is trying to cut down smoking. No recent syncope. No recent travel or sick contacts. Pain is about 5-6 on a scale of 1-10, dull in character, localized to the left side of the chest. No radiation. PAST MEDICAL HISTORY: Hypertension, diabetes, and hyperlipidemia. Does not take any medication for hypertension. PAST SURGICAL HISTORY: Had a left femur surgery and also left shoulder surgery. SOCIAL HISTORY: Smokes over a pack a day. No alcohol, no recreational drugs. FAMILY HISTORY: Significant for hypertension. CURRENT MEDICATIONS: Lipitor 40 mg daily and metformin 500 mg daily. REVIEW OF SYSTEMS: Significant for left-sided chest pain, intermittent in nature since yesterday. Otherwise, review of systems is negative. No shortness of breath, no diaphoresis, no palpitations. A 14-point review of systems is done. PHYSICAL EXAMINATION: GENERAL: Middle-aged male, cooperative during examination. VITAL SIGNS: Blood pressure 128/87, temperature is 97.8, pulse is 51/66, respirations are 20, sats are 99%. HEENT: Unremarkable. Pupils equal and reactive. NECK: Supple, no lymphadenopathy, no thyromegaly. LUNGS: Clear to auscultation and percussion. Good air entry. CARDIOVASCULAR: S1, S2 heard. No gallop, no murmur, no rub. Apical impulse in left fifth intercostal space and midclavicular line. ABDOMEN: Soft and benign. No hepatosplenomegaly. No guarding, no rigidity. Hernial orifices are normal. EXTREMITIES: Good pedal pulses. No pedal edema. CENTRAL NERVOUS SYSTEM: Alert and oriented x 4, nonfocal exam. SKIN: Normal. LABORATORY DATA: EKG shows heart rate of 48 per minute, no acute ST-T wave changes. Sinus tachycardia. No LVH. Chest x-ray shows no acute chest process or significant interval. Labs are significant for white count of 6800, H and H are 12.5 and 37.4, platelet count of 229,000. D-dimer 241.26. Troponins are negative. Sodium is 141, potassium is 3.8, BUN and creatinine 7 and 0.8. A1c is 6.0. Random glucose is 87 and 91. ASSESSMENT AND PLAN: 1. Chest pain, rule out myocardial infarction, chest pain protocol. Serial troponins and Lexiscan in the morning. Gastroesophageal reflux disease in the differential diagnosis. No costochondritis. No chest wall tenderness present. 2. Hypertension, borderline. We will monitor blood pressure and start on antihypertensives if necessary. No antihypertensives at this point. 3. Hyperlipidemia. Continue statins. 4. Type 2 diabetes, well controlled. Continue metformin and coverage. Hemoglobin A1c is 6.0. 5. Deep venous thrombosis prophylaxis, Lovenox 40 mg subcutaneous daily and gastrointestinal prophylaxis. JOB# [id number] VSM/NTS
[2018-11-11] MEDS: HumaLOG SUB-Q SCH ×2 (07:59→12:41)
[2018-11-11] MEDS ORDERED: LEXISCAN IV ONE ×2 (08:20→09:00)
[2018-11-11] MEDS ORDERED: SODIUM CHLORIDE FLUSH SYRINGE 10 ML IV SCH (10:00)
[2018-11-11 12:39] VITALS: BP 131/82
--- NOTE | 2018-11-11 16:00 | Discharge Summary ---
Providers - Providers Date of Admission: 11/10/18 14:20 Date of discharge: 11/11/18 Attending physician: JESSICA SNYDER Cardiology Primary care physician: [facility] Hospitalization Condition: Stable Pertinent studies: Cardiac isoenzymes negative. Lexiscan negative. Chest pain resolved. Smoking cessation noted. Hospital course: Patient 58-year-old male history of hypertension diabetes hyperlipidemia presented with left-sided chest pain radiating down her arm. Patient was admitted for MO via cardiac enzymes and Lexiscan. Patient did not have any further chest pain no shortness of breath no dizziness or exertion no orthopnea no PND. Was stable for discharge to follow with primary care physician in 3-5 days. Follow-up in cardiology in 2 weeks Disposition: DC-01 TO HOME OR SELFCARE - Discharge Diagnoses (1) Acute chest pain Status: Acute (2) Hypertension Status: Acute Qualifiers: Hypertension type: essential hypertension Qualified Code(s): I10 - Essential (primary) hypertension Core Measure Documentation - Palliative Care Palliative Care/ Comfort Measures: Not Applicable - Core Measures Any of the following diagnoses?: none Exam - Constitutional Vitals: Temp Pulse Resp BP Pulse Ox 97.9 F 74 18 131/82 97 11/11/18 08:09 11/11/18 12:36 11/11/18 08:09 11/11/18 12:36 11/11/18 12:36 General appearance: Present: no acute distress, well-nourished - EENT Eyes: Present: PERRL ENT: hearing intact, clear oral mucosa - Neck Neck: Present: supple, normal ROM - Respiratory Respiratory effort: normal Respiratory: bilateral: CTA - Cardiovascular Heart Sounds: Present: S1 & S2. Absent: rub, click - Extremities Extremities: pulses symmetrical, No edema Peripheral Pulses: within normal limits - Abdominal General gastrointestinal: Present: soft, non-tender, non-distended, normal bowel sounds Male genitourinary: Present: normal - Integumentary Integumentary: Present: clear, warm, dry - Musculoskeletal Musculoskeletal: gait normal, strength equal bilaterally - Psychiatric Psychiatric: appropriate mood/affect, intact judgment & insight - Neurologic Neurologic: CNII-XII intact, moves all extremities Plan Activity: no restrictions Diet: low cholesterol, low salt Special Instructions: smoking cessation Follow up with: AMARILIS VU MD [Primary Care Provider] - 3-5 Days Prescriptions: Atorvastatin Calcium [Lipitor] 40 mg PO HS #30 tablet Metformin HCl [Metformin HCl ER] 500 mg PO QPM #30 [id number]
[2018-11-11] MEDS ORDERED: GLUCOPHAGE XR PO SCH (17:00)
[2018-11-11] MEDS ORDERED: METFORMIN HCL 500 MG PO SCH (18:00)
[2018-11-11] MEDS ORDERED: LOVENOX SUB-Q SCH (22:00)
--- NOTE | 2018-11-14 15:19 | Treadmill Report ---
INDICATION: Chest pain. ORDERING PHYSICIAN: Taniya Posadas MD FINDINGS: There is a small mildly reversible inferior wall defect that is likely due to diaphragmatic attenuation. There is evidence of vertical motion artifact during stress imaging. The left ventricle is normal in size. The wall motion is normal with normal wall thickening. The left ventricular ejection fraction is measured at 56%. CONCLUSION: 1.Probably normal myocardial perfusion imaging scan. Small and mildly reversible inferior wall defect likely due to diaphragmatic attenuation artifact. There is normal wall motion and wall thickening. 2.This is a low risk myocardial perfusion study associated with a 1-year cardiovascular event rate of less than 1%. 3.Clinical correlation is warranted. JOB# [id number] MARAL/PEBBLES
== END 2018-11-11 16:39 | disposition home or self-care (01) ==
LOC: ED 10:23 → 4A 14:20
PROVIDERS: ADMIT Internal Medicine; ATTEND Internal Medicine
DX: R07.89 Other chest pain (principal); I10 Essential (primary) hypertension; E78.5 Hyperlipidemia, unspecified; E11.9 Type 2 diabetes mellitus without complications; F17.210 Nicotine dependence, cigarettes, uncomplicated
CPT/HCPCS: 36415; 71046; 78452; 80048; 80053; 82962; 83036; 84484; 85025; 85379; 93005; 93010; 93017; 96374; 96376; 99284; A9502; G0378; J7030; J2785

== ENCOUNTER 2019-01-12 09:37 | Outpatient (CLI) | payer MEDICAID ==
[2019-01-12 11:08] LABS: Chol/HDL Ratio 3.03 %
== END 2019-01-12 09:38 | disposition home or self-care (01) ==
LOC: LAB 09:37
PROVIDERS: ATTEND Internal Medicine
DX: E78.5 Hyperlipidemia, unspecified (principal); E11.9 Type 2 diabetes mellitus without complications; E66.09 Other obesity due to excess calories; I10 Essential (primary) hypertension
CPT/HCPCS: 36415; 80061; 83036

== ENCOUNTER 2019-05-15 09:06 | Outpatient (CLI) | payer MEDICAID ==
[2019-05-15 11:01] LABS: Chol/HDL Ratio 2.71 %
[2019-05-17 10:54] LABS: Vitamin D, 25-OH, D2 <4 ng/mL
== END 2019-05-15 09:07 | disposition home or self-care (01) ==
LOC: LAB 09:06
PROVIDERS: ATTEND Internal Medicine
DX: Z13.21 Encounter for screening for nutritional disorder (principal); E11.9 Type 2 diabetes mellitus without complications; E78.5 Hyperlipidemia, unspecified; I10 Essential (primary) hypertension
CPT/HCPCS: 36415; 80061; 82306; 82607; 83036

== ENCOUNTER 2019-06-25 10:26 | Outpatient (CLI) | payer MEDICAID ==
--- NOTE | 2019-06-25 11:29 | Cat Scan Report ---
CT ABDOMEN AND PELVIS WITHOUT CONTRAST HISTORY: D35.01)Benign neoplasm of right adrenal gland COMPARISON: None. TECHNIQUE: Axial CT images were obtained through the abdomen and pelvis without IV contrast. Sagittal and coronal reformatted images. All CT scans at this location are performed using CT dose reduction for ALARA by means of automated exposure control. FINDINGS: CT ABDOMEN: Lung Bases: Clear. Liver: No significant abnormality. Biliary: No significant abnormality. Spleen: No significant abnormality. Unenlarged. Pancreas: No significant abnormality. Adrenals: Bilateral subcentimeter low density adrenal nodules are identified. Average density measure s approximately 2 Hounsfield units which is consistent with small adrenal adenomas. No aggressive adr enal mass. Kidneys: No significant abnormality. Lymphatics: No lymphadenopathy. Vasculature: Mild distal aortic and iliac calcifications. No aneurysm. Bowel/Peritoneum: No significant abnormality. No free air. No free fluid. Normal appendix. CT PELVIS: : No significant abnormality. Osseous Structures: Previous surgery at the left hip with moderate posttraumatic osteoarthritis. No a cute finding or bony lesion. Additional Findings: None IMPRESSION: Bilateral subcentimeter adrenal adenomas are suspected. Signer Name: Jean Pierre Junior Jr, MD Signed: 06/25/2019 11:25 AM Workstation Name: [id number]
== END 2019-06-25 10:27 | disposition home or self-care (01) ==
LOC: CT 10:26
PROVIDERS: ATTEND Internal Medicine
DX: D35.01 Benign neoplasm of right adrenal gland (principal); I10 Essential (primary) hypertension
CPT/HCPCS: 74176

== ENCOUNTER 2019-07-11 14:42 | Outpatient (CLI) | payer MEDICAID ==
--- NOTE | 2019-07-11 15:18 | XRay Report ---
CHEST 2 VIEWS INDICATION: R05.) COUGH. COMPARISON: 11/10/2018 FINDINGS: Support devices: None. Heart: Within normal limits. Pulmonary vasculature: Normal. Lungs/pleura: No acute air space or interstitial disease. No pneumothorax. Additional findings: Spondylosis of the thoracic spine. IMPRESSION: 1. No acute findings. Signer Name: Tung Carlos MD Signed: 07/11/2019 3:14 PM Workstation Name: [id number]
== END 2019-07-11 14:43 | disposition home or self-care (01) ==
LOC: XRAY 14:42
PROVIDERS: ATTEND Internal Medicine
DX: R05 Cough (principal); M47.814 Spondylosis without myelopathy or radiculopathy, thoracic region; F17.200 Nicotine dependence, unspecified, uncomplicated; I10 Essential (primary) hypertension
CPT/HCPCS: 71046

== ENCOUNTER 2019-11-27 07:28 | Emergency (ER) | payer MEDICAID ==
[2019-11-27 07:53] VITALS: BP 161/98
--- NOTE | 2019-11-27 08:39 | Emergency Department Report ---
ED Shortness of Breath HPI - General Chief Complaint: Dyspnea/Respdistress Stated Complaint: SOB/RT LEG SWELLING Time Seen by Provider: 11/27/19 08:17 Source: patient Mode of arrival: Ambulatory Limitations: No Limitations - History of Present Illness Initial Comments: 59-year-old male with history of diabetes and hypertension presenting with complaints of right leg swelling for the past several days as well as some cough and shortness of breath over the past 3 days. Denies any chest pain, fevers, travel, history of DVT or PE. Denies any leg injury. MD Complaint: shortness of breath -: Gradual, days(s) (3) Severity: moderate Quality: aching Consistency: constant Improves With: nothing Worsens With: nothing Associated Symptoms: denies other symptoms, cough, lower extremity pain Treatments Prior to Arrival: none - Related Data Previous Rx's Medication Instructions Recorded Last Taken Type Atorvastatin Calcium [Lipitor] 40 mg PO HS #30 tablet 11/11/18 Unknown Rx Metformin HCl [metFORMIN ER 500 mg PO QPM #30 [id number] 11/11/18 Unknown Rx Gastric] Doxycycline Hyclate [Doxycycline 100 mg PO Q12HR 7 Days #14 tab 10/05/19 Unknown Rx Hyclate TAB] Albuterol INH(or & Nicu Only) 2 puff IH QID PRN #8.5 gram 11/27/19 Unknown Rx [ProAir HFA Inhaler] predniSONE [Deltasone] 40 mg PO QDAY #10 tab 11/27/19 Unknown Rx Allergies Allergy/AdvReac Type Severity Reaction Status Date / Time No Known Allergies Allergy Verified 01/04/18 09:20 ED Review of Systems ROS: Stated complaint: SOB/RT LEG SWELLING Other details as noted in HPI Comment: All other systems reviewed and negative Respiratory: see HPI Musculoskeletal: as per HPI ED Past Medical Hx - Past Medical History Previous Medical History?: Yes Hx Hypertension: Yes Hx Congestive Heart Failure: No Hx Diabetes: Yes Hx Asthma: No Hx COPD: No - Surgical History Additional Surgical History: [place] to left femur. p fx 6 y ago; until time of fall in May it has not given him problems. - Social History Smoking Status: Current Every Day Smoker Substance Use Type: None - Medications Home Medications: Home Medications Medication Instructions Recorded Confirmed Last Taken Type Atorvastatin Calcium [Lipitor] 40 mg PO HS #30 tablet 03/02/19 Unknown Rx Metformin HCl [metFORMIN ER 500 mg PO QPM #30 [id number] 11/11/18 Unknown Rx Gastric] Doxycycline Hyclate [Doxycycline 100 mg PO Q12HR 7 Days #14 tab 10/05/19 Unknown Rx Hyclate TAB] Albuterol INH(or & Nicu Only) 2 puff IH QID PRN #8.5 gram 11/27/19 Unknown Rx [ProAir HFA Inhaler] predniSONE [Deltasone] 40 mg PO QDAY #10 tab 11/27/19 Unknown Rx ED Physical Exam - General Limitations: No Limitations General appearance: alert, in no apparent distress - Head Head exam: Present: atraumatic, normocephalic - Eye Eye exam: Present: normal appearance - ENT ENT exam: Present: mucous membranes moist - Neck Neck exam: Present: normal inspection - Respiratory Respiratory exam: Present: decreased breath sounds. Absent: respiratory d istress, wheezes - Cardiovascular Cardiovascular Exam: Present: regular rate, normal rhythm. Absent: systolic murmur, diastolic murmur, rubs, gallop - GI/Abdominal GI/Abdominal exam: Present: soft, normal bowel sounds. Absent: distended, tenderness - Rectal Rectal exam: Present: deferred - Extremities Exam Extremities exam: Present: other (There is mild edema and tenderness noted to the right calf, intact distal pulses) - Back Exam Back exam: Present: normal inspection - Neurological Exam Neurological exam: Present: alert, oriented X3 - Psychiatric Psychiatric exam: Present: normal affect, normal mood - Skin Skin exam: Present: warm, dry, intact, normal color. Absent: rash ED Course Vital Signs 11/27/19 07:50 Temperature 98.7 F Pulse Rate 77 Respiratory 18 Rate Blood Pressure 161/98 O2 Sat by Pulse 97 Oximetry ED Medical Decision Making - Lab Data Result diagrams: 11/27/19 08:41 11/27/19 08:41 Lab Results 11/27/19 11/27/19 Range/Units 08:41 08:41 WBC 9.3 (4.5-11.0) K/mm3 RBC 4.90 (3.65-5.03) M/mm3 Hgb 13.8 (11.8-15.2) gm/dl Hct 40.6 (35.5-45.6) % MCV 83 L (84-94) fl MCH 28 (28-32) pg MCHC 34 (32-34) % RDW 17.5 H (13.2-15.2) % Plt Count 242 (140-440) K/mm3 Lymph % (Auto) 30.2 (13.4-35.0) % [place] % (Auto) 9.1 H (0.0-7.3) % Eos % (Auto) 1.4 (0.0-4.3) % Baso % (Auto) 0.5 (0.0-1.8) % Lymph # 2.8 (1.2-5.4) K/mm3 [place] # 0.8 (0.0-0.8) K/mm3 Eos # 0.1 (0.0-0.4) K/mm3 Baso # 0.0 (0.0-0.1) K/mm3 Seg Neutrophils % 58.8 (40.0-70.0) % Seg Neutrophils # 5.5 (1.8-7.7) K/mm3 Sodium 139 (137-145) mmol/L Potassium 3.9 (3.6-5.0) mmol/L Chloride 102.9 (98-107) mmol/L Carbon Dioxide 20 L (22-30) mmol/L Anion Gap 20 mmol/L BUN 14 (9-20) mg/dL Creatinine 0.9 (0.8-1.5) mg/dL Estimated GFR > 60 ml/min BUN/Creatinine Ratio 16 % Glucose 107 H (75-100) mg/dL Calcium 9.2 (8.4-10.2) mg/dL Troponin T < 0.010 (0.00-0.029) ng/mL NT-Pro-B Natriuret Pep 45.42 (0-900) pg/mL - EKG Data -: EKG Interpreted by Nc EKG shows normal: sinus rhythm, axis, intervals, QRS complexes Rate: normal - EKG Data When compared to previous EKG there are: previous EKG unavailable Interpretation: nonspecific ST-T wave tristin - Radiology Data Radiology results: report reviewed Lower extremity Doppler ultrasound is negative, CTA of chest shows emphysema no PE - Medical Decision Making Patient presented with unilateral leg swelling and shortness of breath with some cough over the past few days. On exam he does have right lower extremity edema and tenderness to the calf, intact pulses. We will check CTA chest to rule out PE versus pneumonia and also check lower extremity ultrasound as well as labs. CTA does not show any evidence of pulmonary embolism but does show emphysematous changes. Patient is a smoker. He has been advised on outpatient follow-up and smoking cessation. We will give inhaler as well as a quick burst of steroids. Ultrasound of lower extremity is negative for acute findings. Labs are stable. - Differential Diagnosis DVT, PE, venous insufficiency, pneumonia. Critical care attestation.: If time is entered above; I have spent that time in minutes in the direct care of this critically ill patient, excluding procedure time. ED Disposition Clinical Impression: Leg pain Qualifiers: Laterality: right Qualified Code(s): M79.604 - Pain in right leg Dyspnea Qualifiers: Dyspnea type: shortness of breath Qualified Code(s): R06.02 - Shortness of breath; R06.00 - Dyspnea, unspecified; R06.01 - Orthopnea Disposition: DC-01 TO HOME OR SELFCARE Is pt being admited?: No Condition: Stable Instructions: Emphysema (ED) Prescriptions: predniSONE [Deltasone] 40 mg PO QDAY #10 tab Albuterol INH(or & Nicu Only) [ProAir HFA Inhaler] 2 puff IH QID PRN #8.5 gram PRN Reason: Shortness Of Breath Referrals: PRIMARY CARE, [Primary Care Provider] - 3-5 Days Time of Disposition: 12:19
[2019-11-27 10:04] LABS: Basophils % (Auto) 0.5 % (0.0-1.8); Eosinophils # (Auto) 0.1 K/mm3 (0.0-0.4); Eosinophils % (Auto) 1.4 % (0.0-4.3); Hematocrit 40.6 % (35.5-45.6); Hemoglobin 13.8 gm/dl (11.8-15.2); Lymphocytes # (Auto) 2.8 K/mm3 (1.2-5.4); Lymphocytes % (Auto) 30.2 % (13.4-35.0); Mean Corpuscular HGB Conc 34 % (32-34); Mean Corpuscular Volume 83 fl (84-94); Monocytes # (Auto) 0.8 K/mm3 (0.0-0.8); Monocytes % (Auto) 9.1 % (0.0-7.3); Platelet Count 242 K/mm3 (140-440); Red Cell Distribution Width 17.5 % (13.2-15.2)
[2019-11-27 10:08] LABS: BUN/Creatinine Ratio 16; Blood Urea Nitrogen 14 mg/dL (9-20); Calcium 9.2 mg/dL (8.4-10.2); Hemolysis Index 6
--- NOTE | 2019-11-27 10:29 | Vascular Lab Report ---
DUPLEX DOPPLER LOWER EXTREMITY VEINS, RIGHT INDICATION: edema. TECHNIQUE: Duplex doppler imaging was performed through the veins of the right lower extremity using venous comp ression and other maneuvers. COMPARISON: No relevant prior imaging study available. FINDINGS: Right Common femoral vein: Negative. Right Superficial femoral vein: Negative. Right Popliteal vein: Negative. Right Calf veins: Negative. Additional findings: None.. IMPRESSION: 1. No sonographic evidence for DVT in the right lower extremity. Signer Name: Andres Lange MD Signed: 11/27/2019 10:25 AM Workstation Name: [id number]
--- NOTE | 2019-11-27 12:11 | Cat Scan Report ---
CTA chest with contrast INDICATION : sob. TECHNIQUE: Axial imaging performed through the chest, with contrast bolus timing set to maximize opa cification of the pulmonary arteries. 3-plane MIP reformatted images were obtained. All CT scans at this location are performed using CT dose reduction for ALARA by means of automated exposure control. 100 mL of intravenous contrast administered. COMPARISON: None FINDINGS: Bolus: Contrast bolus timing is adequate. PTE: No filling defect is present to suggest PTE. Mediastinum: Heart and great vessels appear normal. No pathologic mediastinal adenopathy. Lungs: There are mild-moderate emphysematous changes within the lungs with no consolidation or effus ion. Upper abdomen: Limited imaging of the upper abdomen shows nothing acute. Bones: Degenerative changes in the spine with nothing acute. IMPRESSION: 1. Negative for PTE. 2. Mild-moderate emphysematous changes with otherwise clear lungs. Signer Name: Andres Lange MD Signed: 11/27/2019 12:07 PM Workstation Name: [id number]
== END 2019-11-27 12:29 | disposition home or self-care (01) ==
LOC: ED 07:28
DX: M79.604 Pain in right leg (principal); R06.00 Dyspnea, unspecified; I10 Essential (primary) hypertension; E11.9 Type 2 diabetes mellitus without complications; F17.200 Nicotine dependence, unspecified, uncomplicated; Z79.84 Long term (current) use of oral hypoglycemic drugs; Z79.899 Other long term (current) drug therapy; Z98.890 Other specified postprocedural states
CPT/HCPCS: 36415; 71275; 80048; 83880; 84484; 85025; 93005; 93010; 93971; 99284; Q9967

== ENCOUNTER 2020-01-18 08:44 | Emergency (ER) | payer MEDICAID ==
[2020-01-18] MEDS ORDERED: ASPIRIN 81 MG TAB CHEW PO ONE (08:53)
--- NOTE | 2020-01-18 09:11 | XRay Report ---
CHEST 2 VIEWS INDICATION / CLINICAL INFORMATION: Chest Pain. COMPARISON: 01/10/20 FINDINGS: SUPPORT DEVICES: None. HEART / MEDIASTINUM: Heart is upper normal size and stable. LUNGS / PLEURA: No significant pulmonary or pleural abnormality. No pneumothorax. ADDITIONAL FINDINGS: Left shoulder postoperative findings are stable. IMPRESSION: 1. No acute findings. No significant change. Signer Name: Janee Milian MD Signed: 01/18/2020 9:06 AM Workstation Name: [id number]
[2020-01-18 09:15] LABS: Hematocrit 37.8 % (35.5-45.6); Hemoglobin 13.1 gm/dl (11.8-15.2); Mean Corpuscular HGB Conc 35 % (32-34); Mean Corpuscular Volume 83 fl (84-94); Platelet Count 230 K/mm3 (140-440); Red Blood Count 4.55 M/mm3 (3.65-5.03); Red Cell Distribution Width 17.9 % (13.2-15.2)
[2020-01-18 09:25] LABS: Basophils # (Auto) 0.1 K/mm3 (0.0-0.1); Basophils % (Auto) 1.7 % (0.0-1.8); Eosinophils # (Auto) 0.2 K/mm3 (0.0-0.4); Eosinophils % (Auto) 2.1 % (0.0-4.3); Lymphocytes # (Auto) 2.5 K/mm3 (1.2-5.4); Lymphocytes % (Auto) 33.3 % (13.4-35.0); Monocytes # (Auto) 0.6 K/mm3 (0.0-0.8); Monocytes % (Auto) 8.3 % (0.0-7.3)
--- NOTE | 2020-01-18 09:38 | Emergency Department Report ---
ED Chest Pain HPI - General Chief Complaint: Chest Pain Stated Complaint: CHEST PAIN Time Seen by Provider: 01/18/20 09:26 Source: patient Mode of arrival: Ambulatory Limitations: No Limitations - History of Present Illness Initial Comments: 59-year-old -[place] male presents to the emergency department from home with complaint of some left-sided chest pain that started last night. The pain worsens with certain movements but he does still feel it while at rest, just not as intense. Denies any significant shortness of breath, fever, nausea, vomiting or diaphoresis. He has a past medical history of hypertension and diabetes. The patient quit smoking cigarettes about 1.5 weeks ago. The patient was here on 01/10/2020 for similar symptoms and had a negative work-up at that time including negative troponin and negative d-dimer. His contact information was sent to [facility] but the patient says he was not contacte d by them for any follow-up. 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 No recent travel or sick contacts at home. He did not take anything for his symptoms prior to presentation but did receive an aspirin in triage that he says helped. - Related Data Previous Rx's Medication Instructions Recorded Last Taken Type Atorvastatin Calcium [Lipitor] 40 mg PO HS #30 tablet 11/11/18 Unknown Rx Metformin HCl [metFORMIN ER 500 mg PO QPM #30 [id number] 11/11/18 Unknown Rx Gastric] Doxycycline Hyclate [Doxycycline 100 mg PO Q12HR 7 Days #14 tab 10/05/19 Unknown Rx Hyclate TAB] Albuterol INH(or & Nicu Only) 2 puff IH QID PRN #8.5 gram 11/27/19 Unknown Rx [ProAir HFA Inhaler] predniSONE [Deltasone] 40 mg PO QDAY #10 tab 11/27/19 Unknown Rx Docusate Sodium [Colace] 100 mg PO BID PRN #20 capsule 01/10/20 Unknown Rx Allergies Allergy/AdvReac Type Severity Reaction Status Date / Time No Known Allergies Allergy Verified 01/10/20 12:42 Heart Score - HEART Score History: Slightly suspicious EKG: Normal Age: 45-65 Risk factors: > 3 risk factors or hx of atherosclerotic disease Troponin: < normal limit HEART Score: 3 - Critical Actions Critical Actions: 0-3 pts:0.9-1.7%risk of adverse cardiac event.Candidate for discharge ED Review of Systems ROS: Stated complaint: CHEST PAIN Other details as noted in HPI Comment: All other systems reviewed and negative Constitutional: denies: chills, fever Eyes: denies: eye pain, vision change ENT: denies: ear pain, throat pain Respiratory: denies: cough, shortness of breath Cardiovascular: chest pain. denies: palpitations Gastrointestinal: denies: abdominal pain, vomiting Genitourinary: denies: dysuria, discharge Musculoskeletal: denies: back pain, arthralgia Skin: denies: rash, lesions Neurological: denies: headache, weakness ED Past Medical Hx - Past Medical History Hx Hypertension: Yes Hx Congestive Heart Failure: No Hx Diabetes: Yes Hx Asthma: No Hx COPD: No - Surgical History Additional Surgical History: [place] to left femur. p fx 6 y ago; until time of fall in May it has not given him problems. - Social History Smoking Status: Never Smoker Substance Use Type: None - Medications Home Medications: Home Medications Medication Instructions Recorded Confirmed Last Taken Type Atorvastatin Calcium [Lipitor] 40 mg PO HS #30 tablet 11/11/18 Unknown Rx Metformin HCl [metFORMIN ER 500 mg PO QPM #30 [id number] 11/11/18 Unknown Rx Gastric] Doxycycline Hyclate [Doxycycline 100 mg PO Q12HR 7 Days #14 tab 10/05/19 Unknown Rx Hyclate TAB] Albuterol INH(or & Nicu Only) 2 puff IH QID PRN #8.5 gram 11/27/19 Unknown Rx [ProAir HFA Inhaler] predniSONE [Deltasone] 40 mg PO QDAY #10 tab 11/27/19 Unknown Rx Docusate Sodium [Colace] 100 mg PO BID PRN #20 capsule 01/10/20 Unknown Rx ED Physical Exam - General Limitations: No Limitations - Other Other exam information: GENERAL: The patient is well-developed well-nourished. HENT: Normocephalic. Atraumatic. Patient has moist mucous membranes. EYES: Extraocular motions are intact. NECK: Supple. Trachea is midline. CHEST/LUNGS: Clear to auscultation. There is no respiratory distress noted. HEART/CARDIOVASCULAR: Regular. There is no tachycardia. There is no murmur. ABDOMEN: Abdomen is soft, nontender. Patient has normal bowel sounds. SKIN: Skin is warm and dry. NEURO: The patient is awake, alert, and oriented. The patient is cooperative. The patient has no focal neurologic deficits. Normal speech. MUSCULOSKELETAL: There is no tenderness or deformity. There is no evidence of acute injury. ED Course Vital Signs 01/18/20 01/18/20 01/18/20 08:49 09:26 10:00 Temperature 97.8 F Pulse Rate 64 65 58 L Respiratory 16 11 L 16 Rate Blood Pressure 177/88 158/78 Blood Pressure [Left] O2 Sat by Pulse 98 97 Oximetry 01/18/20 01/18/20 01/18/20 11:00 12:00 13:00 Temperature Pulse Rate 64 58 L 57 L Respiratory 19 18 17 Rate Blood Pressure 166/90 141/81 141/88 Blood Pressure [Left] O2 Sat by Pulse 100 98 97 Oximetry 01/18/20 13:40 Temperature Pulse Rate 60 Respiratory 14 Rate Blood Pressure Blood Pressure 140/88 [Left] O2 Sat by Pulse 97 Oximetry - Consultations Consultation #1: 01/18/20 13:45 I spoke with the PA for [facility] cardiology, Regina Irwin, who is working with Dr Packer. We discussed the patient's visit on 01/08 and his ED course thus far today including the negative troponins, negative CTA, EKG and re- stratification. They are in agreement with the plan for discharge with outpatient follow-up and the patient has been set up for an appointment with Dr. Packer for next Tuesday. JAMES score - James Score Age > 65: (0) No Aspirin use within the Past 7 Days: (1) Yes 3 or more CAD Risk Factors: (1) Yes 2 or more Angina events in past 24 hrs: (1) Yes Known CAD with more than 50% Stenosis: (0) No Elevated Cardiac Markers: (0) No ST Deviation Greater than 0.5mm: (0) No JAMES Score: 3 ED Medical Decision Making - Lab Data Result diagrams: 01/18/20 09:06 01/18/20 09:06 - EKG Data -: EKG Interpreted by Me EKG shows normal: sinus rhythm, axis, intervals, QRS complexes, ST-T waves Rate: normal - EKG Data When compared to previous EKG there are: no significant change Interpretation: unchanged when compared t (01/10/20) - Radiology Data Radiology results: report reviewed, image reviewed interpreted by me: Chest x-ray does not show any acute process. There are no pleural effusions, obvious pneumonia and there is no pneumothorax. CTA CHEST WITH IV CONTRAST INDICATION: Acute onset chest pain with dyspnea with elevated d-dimer. TECHNIQUE: Axial CT images were obtained through the chest after injection of 100 mL IV contrast. 3 plane MIP reconstructions were produced. All CT scans at this location are performed using CT dose reduction for ALARA by means of automated exposure control. COMPARISON: None available. FINDINGS: PULMONARY ARTERIES: No pulmonary emboli. AORTA AND ARTERIES: No acute abnormality. MEDIASTINUM: No mass, lymphadenopathy or other significant abnormality. The heart is normal in size without a pericardial effusion. The trachea and main bronchi are patent and normal in caliber. LUNGS: No suspicious consolidation, nodule or mass. No pneumothorax or pleural effusion. Question mild emphysema. ADDITIONAL FINDINGS: None. UPPER ABDOMEN: Nonspecific petechial like calcifications scattered throughout much of the right and left hepatic lobe, nonspecific. Both adrenal glands appear slightly thickened. BONES: No significant osseous abnormality. IMPRESSION: 1. No CT evidence for pulmonary e mbolism. 2. No evidence of pneumonia. Question mild emphysema. - Medical Decision Making This patient presents to the emergency department with some left-sided chest pain since last night. He does not appear in any respiratory or acute distress. His chest pain appears to be reproducible with certain movements of his torso which could show a musculoskeletal component. EKG was done that does not show any signs of ST elevation NM and is unchanged from previous. Chest x-ray did not show any acute process including any pneumothorax, pneumonia or pleural ef fusion. Patient's labs were mostly unremarkable including negative troponins x2 but he did have a slightly elevated and equivocal d-dimer. For this reason a CT angiography of the chest was completed that did not show any signs of pulmonary embolism, dissection, or any other acute process. The patient has a low heart and JAMES score. After discussion with [facility] cardiology, the patient will be discharged home and is set up for an outpatient appointment next Tuesday. In the meantime, the patient will return to the closest emergency department with any worsening of her symptoms or any acute distress. All of his questions have been answered and he understands and agrees to the plan. Critical Care Time: No Critical care attestation.: If time is entered above; I have spent that time in minutes in the direct care of this critically ill patient, excluding procedure time. ED Disposition Clinical Impression: Chest pain Qualifiers: Chest pain type: unspecified Qualified Code(s): R07.9 - Chest pain, unspecified Hypertension Qualifiers: Hypertension type: essential hypertension Qualified Code(s): I10 - Essential (primary) hypertension Disposition: TO HOME OR SELFCARE Is pt being admited?: No Condition: Stable Instructions: Chest Pain (ED), Hypertension (ED) Additional Instructions: Please follow-up with a primary care physician in the next few days. You have been set up for a cardiology outpatient appointment next Tuesday with Dr. Packer. However, in the meantime, please return to the closest emergency department with any worsening of your symptoms or any acute distress. Referrals: PRIMARY CARE, [Primary Care Provider] - 3-5 Days REMA PACKER MD [Staff Physician] - 7 Days ([place] office, 01/25/2020 @ 9:30AM)
[2020-01-18 09:41] LABS: Alanine Aminotransferase 19 units/L (7-56); Albumin 4.2 g/dL (3.9-5); BUN/Creatinine Ratio 12; Blood Urea Nitrogen 11 mg/dL (9-20); Calcium 9.2 mg/dL (8.4-10.2); Hemolysis Index 4
[2020-01-18] MEDS ORDERED: KETOROLAC 30 MG/1 ML INJ IM ONE (10:12)
[2020-01-18 12:17] LABS: Bilirubin,Urine NEG (Negative); Blood,Urine NEG (Negative); Color,Urine Yellow (Yellow); Protein,Urine <15 mg/dL mg/dL (Negative); Urobilinogen,Urine < 2.0 mg/dL (<2.0)
--- NOTE | 2020-01-18 12:30 | Cat Scan Report ---
CTA CHEST WITH IV CONTRAST INDICATION: Acute onset chest pain with dyspnea with elevated d-dimer. TECHNIQUE: Axial CT images were obtained through the chest after injection of 100 mL IV contrast. 3 plane MIP re constructions were produced. All CT scans at this location are performed using CT dose reduction for ALARA by means of automated exposure control. COMPARISON: None available. FINDINGS: PULMONARY ARTERIES: No pulmonary emboli. AORTA AND ARTERIES: No acute abnormality. MEDIASTINUM: No mass, lymphadenopathy or other significant abnormality. The heart is normal in size w ithout a pericardial effusion. The trachea and main bronchi are patent and normal in caliber. LUNGS: No suspicious consolidation, nodule or mass. No pneumothorax or pleural effusion. Question mi ld emphysema. ADDITIONAL FINDINGS: None. UPPER ABDOMEN: Nonspecific petechial like calcifications scattered throughout much of the right and l eft hepatic lobe, nonspecific. Both adrenal glands appear slightly thickened. BONES: No significant osseous abnormality. IMPRESSION: 1. No CT evidence for pulmonary embolism. 2. No evidence of pneumonia. Question mild emphysema. Signer Name: Thompson Pedraza MD Signed: 01/18/2020 12:26 PM Workstation Name: [id number]
[2020-01-18 13:41] VITALS: BP 140/88
== END 2020-01-18 13:41 | disposition home or self-care (01) ==
LOC: ED 08:44
DX: R07.89 Other chest pain (principal); I10 Essential (primary) hypertension; E11.9 Type 2 diabetes mellitus without complications; Z79.899 Other long term (current) drug therapy
CPT/HCPCS: 36415; 71046; 71275; 80053; 81001; 84484; 85025; 85379; 93005; 96372; 99284; J1885; Q9967

== ENCOUNTER 2020-05-30 08:55 | Emergency (ER) | payer MEDICAID ==
[2020-05-30 09:01] VITALS: BP 111/17
--- NOTE | 2020-05-30 10:49 | Emergency Department Report ---
Minor Respiratory - [facility] Chief Complaint: Chest Pain Stated Complaint: CHEST CONGESTION Time Seen by Provider: 05/30/20 10:38 Duration: 4 Days Severity: mild Minor Respiratory: Yes Cough, Yes Fever (Subjective), No Rhinorrhea, No Sore Throat, No Able to Tolerate Fluids, No Ear Pain, No Sick Contacts, No Hemoptysis, No Chest Pain, No Shortness of Breath Other History: 59-year-old -[place] male presents to the emergency room stating he has chest congestion for the past 4 days. Patient states he has been taking Robitussin. Reports a mild cough. He does admit to smoking cigarettes. Denies any shortness of breath. He is followed by Dr. Beverly Colbert last seen 3 months ago. Patient has a past medical history borderline diabetes and hypertension and hypercholesterolemia. ED Review of Systems ROS: Stated complaint: CHEST CONGESTION Other details as noted in HPI ED Past Medical Hx - Past Medical History Previous Medical History?: Yes Hx Hypertension: Yes Hx Congestive Heart Failure: No Hx Diabetes: Yes (borderline) Hx Asthma: No Hx COPD: No - Surgical History Past Surgical History?: Yes Additional Surgical History: [place] to left femur. p fx 6 y ago; until time of fall in May it has not given him problems. - Social History Smoking Status: Never Smoker Substance Use Type: None - Medications Home Medications: Home Medications Medication Instructions Recorded Confirmed Last Taken Type Atorvastatin Calcium [Lipitor] 40 mg PO HS #30 tablet 11/11/18 Unknown Rx Metformin HCl [metFORMIN ER 500 mg PO QPM #30 [id number] 11/11/18 Unknown Rx Gastric] Docusate Sodium [Colace] 100 mg PO BID PRN #20 capsule 01/10/20 Unknown Rx Albuterol Mdi (or & Nicu Only) 2 puff IH QID PRN #8.5 gram 05/30/20 Unknown Rx [ProAir HFA Inhaler] Doxycycline Hyclate [Doxycycline 100 mg PO Q12HR 7 Days #14 tab 05/30/20 Unknown Rx Hyclate TAB] predniSONE [Deltasone] 40 mg PO QDAY #10 tab 05/30/20 Unknown Rx Minor Respiratory Exam - Exam General: Vital signs noted. No distress. Alert and acting appropriately. HEENT: Yes Moist Mucous Membranes, No Pharyngeal Erythema, No Pharyngeal Exudates, No Rhinorrhea, No Conjuctival Injection, No Frontal Tenderness, No Maxillary Tenderness Neck: Yes Supple, No Adenopathy Lungs: Yes Good Air Exchange, No Wheezes, No Ronchi, No Stridor, No Cough, No Labored Respirations, No Retractions, No Use of Accessory Muscles, No Other Abnormal Lung Sounds Skin: No Rash, No Edema Neurologic: Alert and oriented, no deficits. Musculoskeletal: Unremarkable. ED Course Vital Signs 05/30/20 08:57 Temperature 98.3 F Pulse Rate 71 Respiratory 20 Rate Blood Pressure 111/17 [Right] O2 Sat by Pulse 96 Oximetry ED Medical Decision Making - Medical Decision Making 59-year-old -[place] male presents to the emergency room stating he has chest congestion for the past 4 days. Patient states he has been taking Robitussin. Reports a mild cough. He does admit to smoking cigarettes. Denies any shortness of breath. He is followed by Dr. Beverly Colbert last seen 3 months ago. Patient has a past medical history borderline diabetes and hypertension and hypercholesterolemia. Blood pressure is 111/71. Patient will be discharged home on doxycycline, prednisone and albuterol. Critical care attestation.: If time is entered above; I have spent that time in minutes in the direct care of this critically ill patient, excluding procedure time. ED Disposition Clinical Impression: Upper respiratory infection Disposition: DC-01 TO HOME OR SELFCARE Is pt being admited?: No Does the pt Need Aspirin: No Condition: Stable Instructions: Upper Respiratory Infection (ED) Additional Instructions: Complete antibiotics as prescribed. Take medications as prescribed. Follow-up with Dr. Beverly Colbert in the next 3 to 5 days if symptoms persist. Continue stop smoking. Prescriptions: predniSONE [Deltasone] 40 mg PO QDAY #10 tab Doxycycline Hyclate [Doxycycline Hyclate TAB] 100 mg PO Q12HR 7 Days #14 tab Albuterol Mdi (or & Nicu Only) [ProAir HFA Inhaler] 2 puff IH QID PRN #8.5 gram PRN Reason: Shortness Of Breath Referrals: KAYLEEN BLANKENSHIP MD [Staff Physician] - 3-5 Days Forms: Work/School Release Form(ED)
== END 2020-05-30 11:29 | disposition home or self-care (01) ==
LOC: ED 08:55
DX: J06.9 Acute upper respiratory infection, unspecified (principal); I10 Essential (primary) hypertension; E11.9 Type 2 diabetes mellitus without complications; Z98.890 Other specified postprocedural states; Z79.84 Long term (current) use of oral hypoglycemic drugs; Z79.899 Other long term (current) drug therapy
CPT/HCPCS: 99282

== ENCOUNTER 2020-07-26 11:05 | Emergency (ER) | payer MEDICARE ==
[2020-07-26 11:28] VITALS: BP 142/88
--- NOTE | 2020-07-26 12:49 | XRay Report ---
XR chest routine 2V INDICATION / CLINICAL INFORMATION: sob COMPARISON: January 18, 2020 FINDINGS: SUPPORT DEVICES: None. HEART / MEDIASTINUM: No significant abnormality. LUNGS / PLEURA: Lungs are clear. Costophrenic sulci are sharp. No pneumothorax. ADDITIONAL FINDINGS: No significant additional findings. IMPRESSION: 1. No acute findings. Signer Name: Sen Webster MD Signed: 07/26/2020 12:44 PM Workstation Name: [id number]
--- NOTE | 2020-07-26 12:56 | Emergency Department Report ---
ED Shortness of Breath HPI - General Chief Complaint: Dyspnea/Respdistress Stated Complaint: CHEST PAIN Time Seen by Provider: 07/26/20 12:06 Source: patient Mode of arrival: Ambulatory Limitations: No Limitations - History of Present Illness Initial Comments: The patient was evaluated in the emergency department for symptoms described in the history of present illness. He/she was evaluated in the context of the global COVID-19 pandemic, which necessitated consideration that the patient might be at risk for infection with the virus that causes COVID-19. Institutional protocols and algorithms that pertain to the evaluation of patients at risk for COVID-19 are in a state of rapid change based on information released by regulatory bodies including the CDC and federal and state organizations. These policies and algorithms were followed during the patient's care in the emergency department. Please note that these policies, procedures and recommendations changed on a rapid basis. 59-year-old obese male presents to the emergency room stating that he needs a chest x-ray because he is having chest congestion that started yesterday evening. Patient states he took cough medicine last night. He denies any fever chills he does admit to nasal congestion denies any rhinorrhea. Patient states he had a sore throat this morning and gargle with salt and that is improved. Patient does have a history of diabetes and does not check his blood sugars. He does have a primary care doctor Dr. Beverly Colbert. Patient denies any fever chills no nausea no vomiting no chest pain. MD Complaint: shortness of breath Onset/Timin -: days(s) Pain Scale: 0 Known History Of: diabetes Associated Symptoms: denies other symptoms Treatments Prior to Arrival: none - Related Data Previous Rx's Medication Instructions Recorded Last Taken Type Atorvastatin Calcium [Lipitor] 40 mg PO HS #30 tablet 11/11/18 Unknown Rx Metformin HCl [metFORMIN ER 500 mg PO QPM #30 [id number] 11/11/18 Unknown Rx Gastric] Docusate Sodium [Colace] 100 mg PO BID PRN #20 capsule 01/10/20 Unknown Rx Albuterol Mdi (or & Nicu Only) 2 puff IH QID PRN #8.5 gram 05/30/20 Unknown Rx [ProAir HFA Inhaler] Doxycycline Hyclate [Doxycycline 100 mg PO Q12HR 7 Days #14 tab 05/30/20 Unknown Rx Hyclate TAB] predniSONE [Deltasone] 40 mg PO QDAY #10 tab 05/30/20 Unknown Rx Allergies Allergy/AdvReac Type Severity Reaction Status Date / Time No Known Allergies Allergy Verified 01/10/20 12:42 ED Review of Systems ROS: Stated complaint: CHEST PAIN Other details as noted in HPI Comment: All other systems reviewed and negative ED Past Medical Hx - Past Medical History Hx Hypertension: Yes Hx Congestive Heart Failure: No Hx Diabetes: Yes (borderline) Hx Asthma: No Hx COPD: No - Surgical History Additional Surgical History: [place] to left femur. p fx 6 y ago; until time of fall in May it has not given him problems. - Social History Smoking Status: Current Every Day Smoker - Medications Home Medications: Home Medications Medication Instructions Recorded Confirmed Last Taken Type Atorvastatin Calcium [Lipitor] 40 mg PO HS #30 tablet 11/11/18 Unknown Rx Metformin HCl [metFORMIN ER 500 mg PO QPM #30 [id number] 11/11/18 Unknown Rx Gastric] Docusate Sodium [Colace] 100 mg PO BID PRN #20 capsule 01/10/20 Unknown Rx Albuterol Mdi (or & Nicu Only) 2 puff IH QID PRN #8.5 gram 05/30/20 Unknown Rx [ProAir HFA Inhaler] Doxycycline Hyclate [Doxycycline 100 mg PO Q12HR 7 Days #14 tab 05/30/20 Unknown Rx Hyclate TAB] predniSONE [Deltasone] 40 mg PO QDAY #10 tab 05/30/20 Unknown Rx ED Physical Exam - General Limitations: No Limitations General appearance: alert, in no apparent distress - Head Head exam: Present: atraumatic, normocephalic - Eye Eye exam: Present: normal appearance - ENT ENT exam: Present: mucous membranes moist - Neck Neck exam: Present: normal inspection - Respiratory Respiratory exam: Present: normal lung sounds bilaterally. Absent: respiratory distress - Cardiovascular Cardiovascular Exam: Present: regular rate, normal rhythm. Absent: systolic murmur, diastolic murmur, rubs, gallop - GI/Abdominal GI/Abdominal exam: Present: soft, normal bowel sounds - Rectal Rectal exam: Present: deferred - Extremities Exam Extremities exam: Present: normal inspection - Back Exam Back exam: Present: normal inspection - Neurological Exam Neurological exam: Present: alert, oriented X3 - Psychiatric Psychiatric exam: Present: normal affect, normal mood - Skin Skin exam: Present: warm, dry, intact, normal color. Absent: rash ED Course Vital Signs 07/26/20 11:24 Temperature 98.0 F Pulse Rate 92 H Respiratory 18 Rate Blood Pressure 142/88 O2 Sat by Pulse 96 Oximetry ED Medical Decision Making - Medical Decision Making 59-year-old obese male presents to the emergency room stating that he needs a chest x-ray because he is having chest congestion that started yesterday evening. Patient states he took cough medicine last night. He denies any fever chills he does admit to nasal congestion denies any rhinorrhea. Patient states he had a sore throat this morning and gargle with salt and that is improved. Patient does have a history of diabetes and does not check his blood sugars. He does have a primary care doctor Dr. Beverly Colbert. Patient denies any fever chills no nausea no vomiting no chest pain. Vital signs are stable. Chest x-ray is negative. Patient will be discharged home to follow-up with his primary care provider. Critical care attestation.: If time is entered above; I have spent that time in minutes in the direct care of this critically ill patient, excluding procedure time. ED Disposition Clinical Impression: Dyspnea, Chest congestion, Nasal congestion Disposition: DC-01 TO HOME OR SELFCARE Is pt being admited?: No Does the pt Need Aspirin: No Condition: Stable Instructions: Shortness of Breath, Adult, [id number] Additional Instructions: X-ray is negative for any acute findings. Follow-up with your primary care provider if symptoms persist. Referrals: SANJIV BONILLA MD [Primary Care Provider] - 3-5 Days KAYLEEN BLANKENSHIP MD [Staff Physician] - 3-5 Days
== END 2020-07-26 13:07 | disposition home or self-care (01) ==
LOC: ED 11:05
DX: R09.81 Nasal congestion (principal); R06.00 Dyspnea, unspecified; I10 Essential (primary) hypertension; E11.9 Type 2 diabetes mellitus without complications; F17.200 Nicotine dependence, unspecified, uncomplicated; Z79.899 Other long term (current) drug therapy
CPT/HCPCS: 71046; 99283

== ENCOUNTER 2020-10-03 22:33 | Observation (INO) | payer MEDICARE ==
[2020-10-03] MEDS ORDERED: ASPIRIN 325 MG TAB PO ONE (22:56)
[2020-10-03 23:29] LABS: Basophils % (Auto) 0.6 % (0.0-1.8); Eosinophils # (Auto) 0.1 K/mm3 (0.0-0.4); Eosinophils % (Auto) 1.8 % (0.0-4.3); Hemoglobin 12.1 gm/dl (11.8-15.2); Lymphocytes % (Auto) 37.1 % (13.4-35.0); Mean Corpuscular HGB Conc 34 % (32-34); Mean Corpuscular Volume 84 fl (84-94); Monocytes # (Auto) 0.6 K/mm3 (0.0-0.8); Monocytes % (Auto) 7.3 % (0.0-7.3); Platelet Count 223 K/mm3 (140-440); Red Cell Distribution Width 17.7 % (13.2-15.2)
--- NOTE | 2020-10-03 23:46 | Emergency Department Report ---
ED Chest Pain HPI - General Chief Complaint: Chest Pain Stated Complaint: CHEST PAIN PUI?: No Time Seen by Provider: 10/03/20 23:34 Source: family Mode of arrival: Ambulatory Limitations: No Limitations - History of Present Illness Initial Comments: Patient is a 59-year-old male that presents emergency room with complaints of ch est pressure x2 days. Patient states chest pressure is in the center of his chest. Patient states that he had pneumonia 2 months ago and was admitted to [facility]. Patient states he spent a week in the hospital. Patient states that these are the same symptoms he had when he had pneumonia 2 months ago. Patient denies cough. Patient denies shortness of breath. Patient denies fever and chills. Patient states he saw his primary care for 5 days ago and everything looked good per his primary care. Patient states he was tested for Covid 1 week ago. Patient states he did not have any symptoms but chest routinely every 2 months. Patient states his Covid test from a week ago was negative. Patient states the chest pressure is a 2 out of 10. Patient states it is better with rest and worse with exertion and deep breath. Patient denies recent travel. Patient denies recent international travel. Patient denies exposure to the novel coronavirus. Patient denies sick contacts. Patient denies fever and chills. Patient denies cough. Patient denies diarrhea. Patient denies coming in contact with anybody with symptoms of the novel coronavirus. Complaint: other (Chest pressure) -: Sudden Onset: during rest Pain Location: substernal Pain Radiation: none Severity scale (0 -10): 3 Quality: pressure Consistency: constant Improves With: rest Worsens With: exertion, inspiration re: denies: nausea, vomting, diaphoresis, dyspnea, sense of impending doom Other Symptoms: denies: cough, fever, syncope, rash, acid taste in mouth, leg swelling, palpitations, burping Treatments Prior to Arrival: none Aspirin use within the Past 7 Days: (1) Yes - Related Data On Oral Contraceptives: No Previous Rx's Medication Instructions Recorded Last Taken Type Atorvastatin Calcium [Lipitor] 40 mg PO HS #30 tablet 11/11/18 Unknown Rx Metformin HCl [metFORMIN ER 500 mg PO QPM #30 [id number] 11/11/18 Unknown Rx Gastric] Docusate Sodium [Colace] 100 mg PO BID PRN #20 capsule 01/10/20 Unknown Rx Albuterol Mdi (or & Nicu Only) 2 puff IH QID PRN #8.5 gram 05/30/20 Unknown Rx [ProAir HFA Inhaler] Doxycycline Hyclate [Doxycycline 100 mg PO Q12HR 7 Days #14 tab 05/30/20 Unknown Rx Hyclate TAB] predniSONE [Deltasone] 40 mg PO QDAY #10 tab 05/30/20 Unknown Rx Allergies Allergy/AdvReac Type Severity Reaction Status Date / Time No Known Allergies Allergy Verified 01/10/20 12:42 Heart Score - HEART Score History: Moderately suspicious EKG: Normal Age: 45-65 Risk factors: > 3 risk factors or hx of atherosclerotic disease Troponin: < normal limit HEART Score: 4 ED Review of Systems ROS: Stated complaint: CHEST PAIN Other details as noted in HPI Constitutional: denies: chills, fever Eyes: denies: eye pain, eye discharge, vision change ENT: denies: ear pain, throat pain Respiratory: denies: cough, shortness of breath, wheezing Cardiovascular: chest pain. denies: palpitations Endocrine: no symptoms reported Gastrointestinal: denies: abdominal pain, nausea, diarrhea Genitourinary: denies: urgency, dysuria Musculoskeletal: denies: back pain, joint swelling, arthralgia Skin: denies: rash, lesions Neurological: denies: headache, weakness, paresthesias Psychiatric: denies: anxiety, depression Hematological/Lymphatic: denies: easy bleeding, easy bruising ED Past Medical Hx - Past Medical History Previous Medical History?: Yes Hx Hypertension: Yes Hx Congestive Heart Failure: No Hx Diabetes: Yes (borderline) Hx Asthma: No Hx COPD: No Additional medical history: Pneumonia - Surgical History Past Surgical History?: Yes Additional Surgical History: [place] to left femur. p fx 6 y ago; until time of fall in May it has not given him problems. - Family History Family history: no significant - Social History Smoking Status: Current Every Day Smoker Substance Use Type: None - Medications Home Medications: Home Medications Medication Instructions Recorded Confirmed Last Taken Type Atorvastatin Calcium [Lipitor] 40 mg PO HS #30 tablet 11/11/18 Unknown Rx Metformin HCl [metFORMIN ER 500 mg PO QPM #30 [id number] 11/11/18 Unknown Rx Gastric] Docusate Sodium [Colace] 100 mg PO BID PRN #20 capsule 01/10/20 Unknown Rx Albuterol Mdi (or & Nicu Only) 2 puff IH QID PRN #8.5 gram 05/30/20 Unknown Rx [ProAir HFA Inhaler] Doxycycline Hyclate [Doxycycline 100 mg PO Q12HR 7 Days #14 tab 05/30/20 Unknown Rx Hyclate TAB] predniSONE [Deltasone] 40 mg PO QDAY #10 tab 05/30/20 Unknown Rx ED Physical Exam - General Limitations: No Limitations General appearance: alert, in no apparent distress - Head Head exam: Present: atraumatic, normocephalic - Eye Eye exam: Present: normal appearance - ENT ENT exam: Present: mucous membranes moist - Neck Neck exam: Present: normal inspection - Respiratory Respiratory exam: Present: normal lung sounds bilaterally. Absent: respiratory distress - Cardiovascular Cardiovascular Exam: Present: regular rate, normal rhythm. Absent: systolic murmur, diastolic murmur, rubs, gallop - GI/Abdominal GI/Abdominal exam: Present: soft, normal bowel sounds - Rectal Rectal exam: Present: deferred - Extremities Exam Extremities exam: Present: normal inspection - Back Exam Back exam: Present: normal inspection - Neurological Exam Neurological exam: Present: alert, oriented X3 - Psychiatric Psychiatric exam: Present: normal affect, normal mood - Skin Skin exam: Present: warm, dry, intact, normal color. Absent: rash ED Course Vital Signs 10/03/20 22:51 Temperature 97.8 F Pulse Rate 73 Respiratory 16 Rate Blood Pressure 129/74 O2 Sat by Pulse 98 Oximetry - Reevaluation(s) Reevaluation #1: I discussed all results with patient. I discussed plan of care with patient. Patient agrees with plan of care and admission. Patient to be admitted to the hospitalist service. 10/04/20 00:45 - Consultations Consultation #1: Hospitalist consulted for admission. Hospitalist to admit patient. 10/04/20 00:45 ROBERTO score - Roberto Score Age > 65: (0) No Aspirin use within the Past 7 Days: (1) Yes 3 or more CAD Risk Factors: (1) Yes 2 or more Angina events in past 24 hrs: (1) Yes Known CAD with more than 50% Stenosis: (0) No Elevated Cardiac Markers: (0) No ST Deviation Greater than 0.5mm: (0) No ROBERTO Score: 3 ED Medical Decision Making - Lab Data Result diagrams: 10/03/20 22:59 10/03/20 22:59 - EKG Data -: EKG Interpreted by Me EKG shows normal: sinus rhythm, axis, intervals, QRS complexes, ST-T waves Rate: normal - Radiology Data Radiology results: report reviewed, image reviewed interpreted by me: Chest x-ray: No pneumonia, no pneumothorax, shoulder hardware noted., no osseous findings, no acute findings CHEST 1 VIEW 10/03/2020 10:48 PM INDICATION / CLINICAL INFORMATION: Chest Pain. COMPARISON: 07/26/2020 FINDINGS: SUPPORT DEVICES: None. HEART / MEDIASTINUM: No significant abnormality. LUNGS / PLEURA: No significant pulmonary or pleural abnormality. No pneumothorax. ADDITIONAL FINDINGS: Postoperative changes are again noted in the left shoulder. IMPRESSION: 1. No acute findings. - Medical Decision Making Patient is a 59-year-old male that presents emergency room with complaints of chest pressure in the substernal region. Patient had similar symptoms 2 months ago which was pneumonia. Patient had a chest x-ray which was negative for acute finding. Patient had labs done which were essentially unremarkable several hyperglycemia. Patient has a history of diabetes: Hyperlipidemia, hypertension, smoking history. Patient heart score is elevated and is coronary risk factors. Patient admitted to the hospital service for further evaluation treatment and rule out ACS. - Differential Diagnosis ACS, chest pain, pneumonia, Critical care attestation.: If time is entered above; I have spent that time in minutes in the direct care of this critically ill patient, excluding procedure time. ED Disposition Clinical Impression: Acute chest pain Disposition: 09 OP ADMIT IP TO THIS HOSP Is pt being admited?: Yes Does the pt Need Aspirin: No Condition: Critical Instructions: Chest Pain (ED) Time of Disposition: 00:46
--- NOTE | 2020-10-04 | XRay Report ---
CHEST 1 VIEW 10/03/2020 10:48 PM INDICATION / CLINICAL INFORMATION: Chest Pain. COMPARISON: 07/26/2020 FINDINGS: SUPPORT DEVICES: None. HEART / MEDIASTINUM: No significant abnormality. LUNGS / PLEURA: No significant pulmonary or pleural abnormality. No pneumothorax. ADDITIONAL FINDINGS: Postoperative changes are again noted in the left shoulder. IMPRESSION: 1. No acute findings. Signer Name: Rolly Marcano MD Signed: 10/03/2020 11:55 PM Workstation Name: [id number]
[2020-10-04 00:06] LABS: BUN/Creatinine Ratio 13; Blood Urea Nitrogen 12 mg/dL (9-20); Calcium 9.5 mg/dL (8.4-10.2); Hemolysis Index 5
[2020-10-04] MEDS ORDERED: ACETAMINOPHEN 325 MG TAB PO PRN ×2 (01:13)
[2020-10-04] MEDS ORDERED: ONDANSETRON 4 MG/2 ML INJ IV PRN (01:13)
[2020-10-04] MEDS ORDERED: MAGNESIUM HYDROXIDE (MOM) ORAL LIQD UDC PO PRN (01:13)
[2020-10-04] MEDS ORDERED: METOCLOPRAMIDE 10 MG/2 ML INJ IV PRN (01:13)
[2020-10-04] MEDS ORDERED: NITROGLYCERIN 0.4 MG TAB SUBL SL PRN (01:13)
[2020-10-04] MEDS ORDERED: MORPHINE 2 MG/1 ML INJ IV PRN (01:13)
[2020-10-04] MEDS ORDERED: traMADol 50 MG TAB PO PRN (01:13)
[2020-10-04] MEDS ORDERED: amLODIPine 5 MG TAB PO ONE (01:24)
--- NOTE | 2020-10-04 01:24 | History and Physical Report ---
History of Present Illness Date of examination: 10/03/20 Date of admission: 10/03/20 Chief complaint: chest pain History of present illness: Patient is a 59-year-old male that presents emergency room with complaints of chest pressure x2 days. Patient states chest pressure is in the center of his chest. Patient states that he had pneumonia 2 months ago and was admitted to [facility]. Patient states he spent a week in the hospital. Patient states that these are the same symptoms he had when he had pneumonia 2 months ago. Patient denies cough. Patient denies shortness of breath. Patient denies fever and chills. Patient states he saw his primary care for 5 days ago and everything looked good per his primary care. Patient states he was tested for Covid 1 week ago. Patient states he did not have any symptoms but chest routinely every 2 months. Patient states his Covid test from a week ago was negative. Patient states the chest pressure is a 2 out of 10. Patient states it is better with rest and worse with exertion and deep breath. Patient seen at the bedside in the ED. Patient is alert and oriented x3. He states that his chest pain is much better. He admits to tobacco use, denies illicit drug use, drinks occasionally. He reports history of diabetes and he is on Metformin 500 mg twice daily. He takes blood pressure medicine but he said he does not know the name of the medicine he is taking. ED work-up shows WBC 8.2, hemoglobin, platelets 223, sodium 141, potassium 3.8, creatinine 0.9, glucose 157 Troponin done negative Chest x-ray done showed no acute finding Past History Past Medical History: diabetes, hypertension, hyperlipidemia Past Surgical History: Other (shoulder and kandice placement left leg) Social history: Lives alone, smoking. denies: IV drug use Family history: no significant family history Medications and Allergies Allergies Allergy/AdvReac Type Severity Reaction Status Date / Time No Known Allergies Allergy Verified 01/10/20 12:42 Home Medications Medication Instructions Recorded Confirmed Last Taken Type Atorvastatin Calcium [Lipitor] 40 mg PO HS #30 tablet 11/11/18 Unknown Rx Metformin HCl [metFORMIN ER 500 mg PO QPM #30 [id number] 11/11/18 Unknown Rx Gastric] Docusate Sodium [Colace] 100 mg PO BID PRN #20 capsule 01/10/20 Unknown Rx Albuterol Mdi (or & Nicu Only) 2 puff IH QID PRN #8.5 gram 05/30/20 Unknown Rx [ProAir HFA Inhaler] Doxycycline Hyclate [Doxycycline 100 mg PO Q12HR 7 Days #14 tab 05/30/20 Unknown Rx Hyclate TAB] predniSONE [Deltasone] 40 mg PO QDAY #10 tab 05/30/20 Unknown Rx Active Meds: Active Medications Acetaminophen (Acetaminophen 325 Mg Tab) 650 mg PO Q4H PRN PRN Reason: Pain MILD(1-3)/Fever >100.5/CASTRO Acetaminophen (Acetaminophen 325 Mg Tab) 650 mg PO Q6H PRN PRN Reason: Pain, Mild (1-3) Atorvastatin Calcium (Atorvastatin 40 Mg Tab) 40 mg PO QHS SHARMIN Magnesium Hydroxide (Magnesium Hydroxide (Mom) Oral Liqd Udc) 30 ml PO Q4H PRN PRN Reason: Constipation Metoclopramide HCl (Metoclopramide 10 Mg/2 Ml Inj) 10 mg IV Q6H PRN PRN Reason: Nausea And Vomiting Morphine Sulfate (Morphine 2 Mg/1 Ml Inj) 2 mg IV Q4H PRN PRN Reason: Pain, Moderate (4-6) Nitroglycerin (Nitroglycerin 0.4 Mg Tab Subl) 0.4 mg SL Q5M PRN PRN Reason: Chest Pain Ondansetron HCl (Ondansetron 4 Mg/2 Ml Inj) 4 mg IV Q8H PRN PRN Reason: Nausea And Vomiting Pantoprazole Sodium (Pantoprazole 40 Mg Tab) 40 mg PO QDAY SHARMIN Sodium Chloride (Sodium Chloride 0.9% 10 Ml Flush Syringe) 10 ml IV BID SHARMIN Sodium Chloride (Sodium Chloride 0.9% 10 Ml Flush Syringe) 10 ml IV PRN PRN PRN Reason: LINE FLUSH Sodium Chloride (Sodium Chloride 0.9% 10 Ml Flush Syringe) 10 ml IV PRN PRN PRN Reason: LINE FLUSH Tramadol HCl (Tramadol 50 Mg Tab) 50 mg PO Q4H PRN PRN Reason: Pain, Moderate (4-6) Review of Systems Constitutional: no chronic pain Ears, nose, mouth and throat: no epistaxis Cardiovascular: chest pain, high blood pressure Respiratory: no wheezing Gastrointestinal: no melena Genitourinary Male: no flank pain Rectal: no hemorrhoids Musculoskeletal: no neck stiffness Integumentary: no rash, no pruritis Neurological: no head injury Psychiatric: no anxiety, no suicidal ideation, no disorientation Hematologic/Lymphatic: no easy bruising Allergic/Immunologic: no urticaria Exam - Constitutional Vitals: Temp Pulse Resp BP Pulse Ox 97.8 F 73 16 129/74 98 10/03/20 22:51 10/03/20 22:51 10/03/20 22:51 10/03/20 22:51 10/03/20 22:51 General appearance: Present: mild distress, well-nourished, obese - EENT Eyes: Present: PERRL ENT: hearing intact, clear oral mucosa - Neck Neck: Present: supple, normal ROM - Respiratory Respiratory effort: normal Respiratory: bilateral: CTA - Cardiovascular Heart rate: 73 Heart Sounds: Present: S1 & S2. Absent: rub, click - Extremities Extremities: pulses symmetrical, No edema Peripheral Pulses: within normal limits - Abdominal General gastrointestinal: Present: soft, non-tender, non-distended, normal bowel sounds Male genitourinary: Present: normal - Integumentary Integumentary: Present: clear, warm, dry - Musculoskeletal Musculoskeletal: gait normal, strength equal bilaterally - Psychiatric Psychiatric: appropriate mood/affect, intact judgment & insight - Neurologic Neurologic: CNII-XII intact, moves all extremities - Allied Health Allied health notes reviewed: nursing HEART Score - HEART Score EKG: Normal Age: 45-65 Risk factors: > 3 risk factors or hx of atherosclerotic disease Troponin: Troponin T < 0.010 ng/mL (0.00-0.029) 10/03/20 22:59 Troponin: < normal limit Results - Labs CBC & Chem 7: 10/03/20 22:59 10/03/20 22:59 Labs: Abnormal lab results 10/03/20 10/03/20 Range/Units 22:59 22:59 RDW 17.7 H (13.2-15.2) % Lymph % (Auto) 37.1 H (13.4-35.0) % Glucose 157 H (75-100) mg/dL Assessment and Plan - Patient Problems (1) Acute chest pain Current Visit: Yes Status: Acute Plan to address problem: Start cardioprotective protective measures Aspirin, statin, oxygen as needed Echocardiogram ordered House Carpenter Helper consulted- possible stress test in the morning keep patient n.p.o. (2) Hypertension Current Visit: No Status: Acute Plan to address problem: Monitor blood pressure Resume home antihypertensive meds As needed hydralazine, adjust blood pressure medicine if needed (3) Diabetes mellitus Current Visit: Yes Status: Acute Plan to address problem: Check hemoglobin A1c Monitor blood sugar with sliding scale protocol Patient advised to avoid food rich and concentrated sweeteners Patient advised to monitor his blood sugar at home and follow-up with his primary care (4) Hyperlipemia Current Visit: Yes Status: Acute Plan to address problem: Resume home statin (5) Tobacco abuse Current Visit: Yes Status: Acute Plan to address problem: Tobacco use cessation 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 He said he will plan to quit smoking (6) Morbid obesity due to excess calories Current Visit: Yes Status: Acute Plan to address problem: Discussed lifestyle modification Encouraged to eat healthy diet with more fruits and vegetables Discussed them weight loss management and importance of regular exercise Patient voiced understanding (7) DVT prophylaxis Current Visit: Yes Status: Acute Plan to address problem: Subcutaneous Lovenox
[2020-10-04 02:31] LABS: Basophils % (Auto) 0.6 % (0.0-1.8); Eosinophils # (Auto) 0.1 K/mm3 (0.0-0.4); Eosinophils % (Auto) 1.5 % (0.0-4.3); Hematocrit 35.9 % (35.5-45.6); Hemoglobin 11.9 gm/dl (11.8-15.2); Lymphocytes % (Auto) 36.6 % (13.4-35.0); Mean Corpuscular HGB Conc 33 % (32-34); Mean Corpuscular Volume 85 fl (84-94); Monocytes # (Auto) 0.8 K/mm3 (0.0-0.8); Monocytes % (Auto) 9.3 % (0.0-7.3); Platelet Count 214 K/mm3 (140-440); Red Blood Count 4.21 M/mm3 (3.65-5.03); Red Cell Distribution Width 17.8 % (13.2-15.2)
[2020-10-04 03:07] LABS: BUN/Creatinine Ratio 14; Blood Urea Nitrogen 13 mg/dL (9-20); Calcium 8.9 mg/dL (8.4-10.2); Chol/HDL Ratio 2.55 %; HDL Cholesterol 49 mg/dL (40-59); Hemolysis Index 8; LDL Cholesterol,Direct 70 mg/dL (50-130)
[2020-10-04] MEDS ORDERED: PANTOPRAZOLE 40 MG TAB PO SCH (10:00)
[2020-10-04] MEDS ORDERED: ENOXAPARIN 40 MG/0.4 ML INJ SUB-Q SCH (10:00)
--- NOTE | 2020-10-04 11:03 | Consultation ---
Past History Past Medical History: diabetes, hypertension, hyperlipidemia Past Surgical History: Other (shoulder and kandice placement left leg) Social history: Lives alone, smoking. denies: IV drug use Family history: no significant family history Medications and Allergies Allergies Allergy/AdvReac Type Severity Reaction Status Date / Time No Known Allergies Allergy Verified 01/10/20 12:42 Home Medications Medication Instructions Recorded Confirmed Last Taken Type Atorvastatin Calcium [Lipitor] 40 mg PO HS #30 tablet 11/11/18 Unknown Rx Metformin HCl [metFORMIN ER 500 mg PO QPM #30 [id number] 11/11/18 Unknown Rx Gastric] Docusate Sodium [Colace] 100 mg PO BID PRN #20 capsule 01/10/20 Unknown Rx Albuterol Mdi (or & Nicu Only) 2 puff IH QID PRN #8.5 gram 05/30/20 Unknown Rx [ProAir HFA Inhaler] Doxycycline Hyclate [Doxycycline 100 mg PO Q12HR 7 Days #14 tab 05/30/20 Unknown Rx Hyclate TAB] predniSONE [Deltasone] 40 mg PO QDAY #10 tab 05/30/20 Unknown Rx Active Meds: Active Medications Acetaminophen (Acetaminophen 325 Mg Tab) 650 mg PO Q4H PRN PRN Reason: Pain MILD(1-3)/Fever >100.5/CASTRO Aspirin (Aspirin 325 Mg Tab) 325 mg PO QDAY SHARMIN Atorvastatin Calcium (Atorvastatin 40 Mg Tab) 40 mg PO QHS SHARMIN Enoxaparin Sodium (Enoxaparin 40 Mg/0.4 Ml Inj) 40 mg SUB-Q QDAY@1000 SHARMIN; Protocol Last Admin: 10/04/20 09:14 Dose: 40 mg Documented by: Magnesium Hydroxide (Magnesium Hydroxide (Mom) Oral Liqd Udc) 30 ml PO Q4H PRN PRN Reason: Constipation Metoclopramide HCl (Metoclopramide 10 Mg/2 Ml Inj) 10 mg IV Q6H PRN PRN Reason: Nausea And Vomiting Morphine Sulfate (Morphine 2 Mg/1 Ml Inj) 2 mg IV Q4H PRN PRN Reason: Pain, Moderate (4-6) Nitroglycerin (Nitroglycerin 0.4 Mg Tab Subl) 0.4 mg SL Q5M PRN PRN Reason: Chest Pain Ondansetron HCl (Ondansetron 4 Mg/2 Ml Inj) 4 mg IV Q8H PRN PRN Reason: Nausea And Vomiting Pantoprazole Sodium (Pantoprazole 40 Mg Tab) 40 mg PO QDAY [facility] Last Admin: 10/04/20 09:14 Dose: 40 mg Documented by: Sodium Chloride (Sodium Chloride 0.9% 10 Ml Flush Syringe) 10 ml IV BID [facility] Last Admin: 10/04/20 09:14 Dose: 10 ml Documented by: Sodium Chloride (Sodium Chloride 0.9% 10 Ml Flush Syringe) 10 ml IV PRN PRN PRN Reason: LINE FLUSH Tramadol HCl (Tramadol 50 Mg Tab) 50 mg PO Q4H PRN PRN Reason: Pain, Moderate (4-6) Physical Examination Vital Signs Temp Pulse Resp BP Pulse Ox 97.8 F 73 16 129/74 98 10/03/20 22:51 10/03/20 22:51 10/03/20 22:51 10/03/20 22:51 10/03/20 22:51 Results 10/04/20 01:45 10/04/20 01:45 Lipids 10/04/20 Range/Units 01:45 Triglycerides 84 (2-149) mg/dL Cholesterol 125 (50-199) mg/dL HDL Cholesterol 49 (40-59) mg/dL Cholesterol/HDL Ratio 2.55 % CBC 10/03/20 10/04/20 Range/Units 22:59 01:45 WBC 8.2 8.1 (4.5-11.0) K/mm3 RBC 4.30 4.21 (3.65-5.03) M/mm3 Hgb 12.1 11.9 (11.8-15.2) gm/dl Hct 36.0 35.9 (35.5-45.6) % Plt Count 223 214 (140-440) K/mm3 Lymph # (Auto) 3.0 3.0 (1.2-5.4) K/mm3 [place] # (Auto) 0.6 0.8 (0.0-0.8) K/mm3 Eos # (Auto) 0.1 0.1 (0.0-0.4) K/mm3 Baso # (Auto) 0.0 0.0 (0.0-0.1) K/mm3 Comprehensive Metabolic Panel 10/03/20 10/04/20 Range/Units 22:59 01:45 Sodium 141 135 L (137-145) mmol/L Potassium 3.8 4.0 (3.6-5.0) mmol/L Chloride 101.9 98.6 (98-107) mmol/L Carbon Dioxide 24 27 (22-30) mmol/L BUN 12 13 (9-20) mg/dL Creatinine 0.9 0.9 (0.8-1.3) mg/dL Glucose 157 H 118 H (75-100) mg/dL Calcium 9.5 8.9 (8.4-10.2) mg/dL Assessment and Plan full consult dictated thanks
--- NOTE | 2020-10-04 11:55 | Consultation ---
REASON FOR CONSULTATION: Advice and opinion regarding chest pain. HISTORY OF PRESENT ILLNESS: The patient is a very pleasant 59-year-old -[place] gentleman who presents with chest pain for 2 days, center of his chest. He was hospitalized at [facility] 2 months ago with pneumonia, spent a week in the hospital. He states his symptoms are somewhat similar. No fevers or chills. Saw his primary care 5 days ago, thought everything looked okay. Negative COVID test 1 week ago. Chest pressure sometimes worse with exertion. He is seen at the bedside on telemetry. 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 No further chest pain. PAST MEDICAL HISTORY: Includes diabetes, hypertension, hyperlipidemia. PAST SURGICAL HISTORY: Has had left leg surgery. SOCIAL HISTORY: Lives alone. Does smoke. Denies IV drug use. ALLERGIES: No known drug, food or environmental allergies. MEDICATIONS: Inpatient and outpatient medications are reviewed. PHYSICAL EXAMINATION: VITAL SIGNS: Blood pressure is 120/80. He is afebrile. Tele reveals sinus rhythm in the 60s and 70s, O2 sat is 98% on room air. HEENT: Sclerae are anicteric. NECK: Supple, no masses, no JVD. CHEST: Clear to auscultation bilaterally. Good air movement. CARDIOVASCULAR: Regular rhythm, S1, S2. ABDOMEN: Soft, nontender, nondistended. Normoactive bowel sounds in 4 quadrants. No mass or bruits. EXTREMITIES: No cyanosis, clubbing, edema. Good peripheral pulses. SKIN: Intact. No rashes. LABORATORY DATA: His EKG shows sinus rhythm, no acute ST segment changes. Troponin is negative x 3. Total cholesterol is 125, LDL 70, HDL 49, creatinine and potassium are normal. Chest x-ray shows no acute findings. ASSESSMENT: In summary, the patient is a pleasant 59-year-old -[place] gentleman with multiple risk factors including hypertension, diabetes, hyperlipidemia and tobacco abuse, presents here with chest pain with typical and atypical features. Chest x-ray and blood work is unremarkable. EKG is normal. Troponin negative x 3. Echo pending. Needs to quit smoking. Discussed at length primarily secondary to prevention measures. Discussed at length. May keep overnight to follow until he is chest pain free. Follow up echocardiogram. If workup is negative, may consider discharge in a.m. for outpatient stress test. [facility]# [id number] SHANAE/PEBBLES
[2020-10-04] MEDS ORDERED: ASPIRIN 325 MG TAB PO SCH (12:00)
[2020-10-04 12:57] VITALS: BP 126/74
--- NOTE | 2020-10-04 15:20 | Event Note ---
Date: 10/04/20 Patient seen and examined Continue to complains of intermittent chest pain Continue to monitor with serial troponin and EKG Follow cardiology recommendation Ordered for 2D echo
--- NOTE | 2020-10-04 16:01 | Discharge Summary ---
Providers - Providers Date of Admission: 10/04/20 01:13 Date of discharge: 10/04/20 Attending physician: HOLLIE SAUCEDO 10/04/20 Consult to Cardiac Rehabilitation [CONS] Routine Reason For Exam: Phase I 10/04/20 01:13 Consult to Cardiology [CONS] Routine Consulting Provider: REMA GU Reason For Exam: chest pain Primary care physician: [employer] GLOVE [employer]ANER Hospitalization Condition: Critical Hospital course: Discharge diagnosis: --Acute chest pain, likely from GERD has stress test scheduled on Tuesday at [place] -- Hypertension Resume home antihypertensive meds --Diabetes mellitus Patient advised to avoid food rich and concentrated sweeteners Patient advised to monitor his blood sugar at home and follow-up with his primary care -- Hyperlipemia Resume home statin -- Tobacco abuse Tobacco use cessation recommended -- Morbid obesity due to excess calories Discussed lifestyle modification Encouraged to eat healthy diet with more fruits and vegetables Discussed them weight loss management and importance of regular exercise Patient voiced understanding -- DVT prophylaxis, Subcutaneous Lovenox Disposition: - TO HOME OR SELFCARE Time spent for discharge: 34 minutes Core Measure Documentation - Palliative Care Palliative Care/ Comfort Measures: Not Applicable - Core Measures Any of the following diagnoses?: none Exam - Constitutional Vitals: Temp Pulse Resp BP Pulse Ox 98.8 F 55 L 18 126/74 97 10/04/20 12:56 10/04/20 13:00 10/04/20 12:56 10/04/20 12:56 10/04/20 12:56 Plan Activity: advance as tolerated Weight Bearing Status: Weight Bear as Tolerated Diet: low fat, low salt, diabetic Special Instructions: record daily BP diary, record blood sugar diary Prescriptions: Aspirin 325 mg PO QDAY #30 tablet Pantoprazole [Protonix] 40 mg PO QDAY #30 tablet
== END 2020-10-04 18:01 | disposition home or self-care (01) ==
LOC: ED 22:33 → 4A 10-04 01:13
PROVIDERS: ADMIT Internal Medicine Geriatric Medicine; ATTEND Internal Medicine
DX: R07.89 Other chest pain (principal); I10 Essential (primary) hypertension; E11.9 Type 2 diabetes mellitus without complications; E78.5 Hyperlipidemia, unspecified; E66.01 Morbid (severe) obesity due to excess calories; F17.210 Nicotine dependence, cigarettes, uncomplicated; Z98.890 Other specified postprocedural states; Z79.899 Other long term (current) drug therapy; Z79.84 Long term (current) use of oral hypoglycemic drugs; Z68.37 Body mass index [BMI] 37.0-37.9, adult
CPT/HCPCS: 36415; 71045; 80048; 80061; 83036; 84484; 85025; 93005; 93306; 96372; 99285; 99406; G0378; J1650

== ENCOUNTER 2021-04-09 09:08 | Emergency (ER) | payer MEDICARE ==
[2021-04-09 09:40] VITALS: BP 135/79
[2021-04-09 10:10] LABS: Bilirubin,Urine NEG (Negative); Blood,Urine SM (Negative); Color,Urine Yellow (Yellow); Protein,Urine <15 mg/dL mg/dL (Negative); Urobilinogen,Urine < 2.0 mg/dL (<2.0); WBC,Urine < 1.0 /HPF (0.0-6.0)
[2021-04-09 10:20] LABS: Basophils # (Auto) 0.1 K/mm3 (0.0-0.1); Basophils % (Auto) 0.7 % (0.0-1.8); Eosinophils # (Auto) 0.1 K/mm3 (0.0-0.4); Eosinophils % (Auto) 1.3 % (0.0-4.3); Hematocrit 37.7 % (35.5-45.6); Hemoglobin 12.4 gm/dl (11.8-15.2); Lymphocytes # (Auto) 2.5 K/mm3 (1.2-5.4); Lymphocytes % (Auto) 35.1 % (13.4-35.0); Mean Corpuscular HGB Conc 33 % (32-34); Mean Corpuscular Volume 84 fl (84-94); Monocytes # (Auto) 0.7 K/mm3 (0.0-0.8); Platelet Count 224 K/mm3 (140-440); Red Blood Count 4.47 M/mm3 (3.65-5.03)
[2021-04-09 10:35] LABS: Alanine Aminotransferase 21 units/L (7-56); Albumin 4.2 g/dL (3.9-5); BUN/Creatinine Ratio 15; Blood Urea Nitrogen 12 mg/dL (9-20); Calcium 9.5 mg/dL (8.4-10.2); Hemolysis Index 15
--- NOTE | 2021-04-09 12:38 | Emergency Department Report ---
ED General Adult HPI - General Chief complaint: Abdominal Pain Stated complaint: SHARP PAIN IN BOTTOM OF STOMACH Time Seen by Provider: 04/09/21 11:56 Source: patient Mode of arrival: Ambulatory Limitations: No Limitations - History of Present Illness Initial comments: Patient is a 60-year-old male presents emergency room with complaints of lower abdominal pain that began a couple days ago. He states it is intermittent sharp stabbing pain. He states he believes he is not urinating as much as he is drinking. He still is able to urinate and does not have any difficulty with stream or dysuria or hematuria. He denies any pain or swelling in the te sticles. He denies any fever, nausea, vomiting, diarrhea, hematochezia, melena, hematemesis. He states he had a normal bowel movement this morning. He states he previously used to be a heavy drinker but stopped. Patient states that he is also had a cough for a couple of days and occasional wheezing after coughing. He denies any chest pain or shortness of breath. He is a smoker. Past medical history of diabetes and hypertension. No allergies to medications. He has no previous past abdominal surgical history. - Related Data Previous Rx's Medication Instructions Recorded Last Taken Type Atorvastatin Calcium [Lipitor] 40 mg PO HS #30 tablet 11/11/18 Unknown Rx Metformin HCl [metFORMIN ER 500 mg PO QPM #30 [id number] 11/11/18 Unknown Rx Gastric] Docusate Sodium [Colace CAP] 100 mg PO BID PRN #20 capsule 01/10/20 Unknown Rx Albuterol Mdi (or & Nicu Only) 2 puff IH QID PRN #8.5 gram 05/30/20 Unknown Rx [ProAir HFA Inhaler] Aspirin 325 mg PO QDAY #30 tablet 10/04/20 Unknown Rx Pantoprazole [Protonix] 40 mg PO QDAY #30 tablet 10/04/20 Unknown Rx Albuterol Sulfate [Proventil Hfa] 1 puff IH TID PRN #1 hfa.aer.ad 04/09/21 Unknown Rx Amoxicillin/Potassium Clav 1 each PO BID 10 Days #20 tablet 04/09/21 Unknown Rx [Augmentin 875-125 Tablet] Benzonatate [Tessalon Perles] 100 mg PO Q8HR PRN #12 capsule 04/09/21 Unknown Rx Ibuprofen [Motrin 600 MG tab] 600 mg PO Q8H PRN #20 tablet 04/09/21 Unknown Rx traMADoL [Ultram 50 MG tab] 50 mg PO Q8HR PRN #10 tablet 04/09/21 Unknown Rx Allergies Allergy/AdvReac Type Severity Reaction Status Date / Time No Known Allergies Allergy Verified 04/09/21 09:36 ED Review of Systems ROS: Stated complaint: SHARP PAIN IN BOTTOM OF STOMACH Other details as noted in HPI Comment: All other systems reviewed and negative ED Past Medical Hx - Past Medical History Hx Hypertension: Yes Hx Congestive Heart Failure: No Hx Diabetes: Yes Hx Asthma: No Hx COPD: No Additional medical history: Pneumonia - Surgical History Additional Surgical History: [place] to left femur. p fx 6 y ago; until time of fall in May it has not given him problems. - Social History Smoking Status: Current Every Day Smoker Substance Use Type: None - Medications Home Medications: Home Medications Medication Instructions Recorded Confirmed Last Taken Type Atorvastatin Calcium [Lipitor] 40 mg PO HS #30 tablet 11/11/18 Unknown Rx Metformin HCl [metFORMIN ER 500 mg PO QPM #30 [id number] 11/11/18 Unknown Rx Gastric] Docusate Sodium [Colace CAP] 100 mg PO BID PRN #20 capsule 01/10/20 Unknown Rx Albuterol Mdi (or & Nicu Only) 2 puff IH QID PRN #8.5 gram 05/30/20 Unknown Rx [ProAir HFA Inhaler] Aspirin 325 mg PO QDAY #30 tablet 10/04/20 Unknown Rx Pantoprazole [Protonix] 40 mg PO QDAY #30 tablet 10/04/20 Unknown Rx Albuterol Sulfate [Proventil Hfa] 1 puff IH TID PRN #1 hfa.aer.ad 04/09/21 Unknown Rx Amoxicillin/Potassium Clav 1 each PO BID 10 Days #20 tablet 04/09/21 Unknown Rx [Augmentin 875-125 Tablet] Benzonatate [Tessalon Perles] 100 mg PO Q8HR PRN #12 capsule 04/09/21 Unknown Rx Ibuprofen [Motrin 600 MG tab] 600 mg PO Q8H PRN #20 tablet 04/09/21 Unknown Rx traMADoL [Ultram 50 MG tab] 50 mg PO Q8HR PRN #10 tablet 04/09/21 Unknown Rx ED Physical Exam - General Limitations: No Limitations General appearance: alert, in no apparent distress - Head Head exam: Present: atraumatic, normocephalic - Eye Eye exam: Present: normal appearance - ENT ENT exam: Present: mucous membranes moist - Respiratory Respiratory exam: Present: normal lung sounds bilaterally. Absent: respiratory distress, wheezes, rales, rhonchi, stridor, chest wall tenderness, accessory muscle use, decreased breath sounds, prolonged expiratory - Cardiovascular Cardiovascular Exam: Present: regular rate, normal rhythm, normal heart sounds. Absent: systolic murmur, diastolic murmur, rubs, gallop - GI/Abdominal GI/Abdominal exam: Present: soft, tenderness (LLQ), normal bowel sounds. Ab sent: distended, guarding, rebound, rigid - Neurological Exam Neurological exam: Present: alert, oriented X3 - Psychiatric Psychiatric exam: Present: normal affect, normal mood - Skin Skin exam: Present: warm, dry, intact ED Course Vital Signs 04/09/21 09:39 Temperature 98.7 F Pulse Rate 67 Respiratory 18 Rate Blood Pressure 135/79 O2 Sat by Pulse 96 Oximetry - Consultations Consultation #1: 04/09/21 13:[address] Arreguin, general surgery regarding patient presentation and results, advised to place patient on Augmentin for 7 days, give NSAIDs and encourage soft diet and have patient follow-up outpatient with GI ED Medical Decision Making - Lab Data Result diagrams: 04/09/21 09:55 04/09/21 09:55 Lab Results 04/09/21 04/09/21 04/09/21 Range/Units 09:55 09:55 11:58 WBC 7.1 (4.5-11.0) K/mm3 RBC 4.47 (3.65-5.03) M/mm3 Hgb 12.4 (11.8-15.2) gm/dl Hct 37.7 (35.5-45.6) % MCV 84 (84-94) fl MCH 28 (28-32) pg MCHC 33 (32-34) % RDW 18.0 H (13.2-15.2) % Plt Count 224 (140-440) K/mm3 Lymph % (Auto) 35.1 H (13.4-35.0) % Douglas % (Auto) 10.0 H (0.0-7.3) % Eos % (Auto) 1.3 (0.0-4.3) % Baso % (Auto) 0.7 (0.0-1.8) % Lymph # (Auto) 2.5 (1.2-5.4) K/mm3 Douglas # (Auto) 0.7 (0.0-0.8) K/mm3 Eos # (Auto) 0.1 (0.0-0.4) K/mm3 Baso # (Auto) 0.1 (0.0-0.1) K/mm3 Seg Neutrophils % 52.9 (40.0-70.0) % Seg Neutrophils # 3.8 (1.8-7.7) K/mm3 Sodium 141 (137-145) mmol/L Potassium 3.9 (3.6-5.0) mmol/L Chloride 105.9 (98-107) mmol/L Carbon Dioxide 23 (22-30) mmol/L Anion Gap 16 mmol/L BUN 12 (9-20) mg/dL Creatinine 0.8 (0.8-1.3) mg/dL Estimated GFR > 60 ml/min BUN/Creatinine Ratio 15 % Glucose 114 H (75-100) mg/dL Calcium 9.5 (8.4-10.2) mg/dL Total Bilirubin 0.30 (0.1-1.2) mg/dL AST 20 (5-40) units/L ALT 21 (7-56) units/L Alkaline Phosphatase 58 (35-129) units/L Total Protein 7.6 (6.3-8.2) g/dL Albumin 4.2 (3.9-5) g/dL Albumin/Globulin Ratio 1.2 % Lipase 42 (13-60) units/L Urine Color (Yellow) Urine Turbidity (Clear) Urine pH (5.0-7.0) Ur Specific [place] (1.003-1.030) Urine Protein (Negative) mg/dL Urine Glucose (UA) (Negative) mg/dL Urine Ketones (Negative) mg/dL Urine Blood (Negative) Urine Nitrite (Negative) Urine Bilirubin (Negative) Urine Urobilinogen (<2.0) mg/dL Ur Leukocyte Esterase (Negative) Urine WBC (Auto) (0.0-6.0) /HPF Urine RBC (Auto) (0.0-6.0) /HPF U Epithel Cells (Auto) (0-13.0) /HPF 04/09/21 Range/Units Unknown WBC (4.5-11.0) K/mm3 RBC (3.65-5.03) M/mm3 Hgb (11.8-15.2) gm/dl Hct (35.5-45.6) % MCV (84-94) fl MCH (28-32) pg MCHC (32-34) % RDW (13.2-15.2) % Plt Count (140-440) K/mm3 Lymph % (Auto) (13.4-35.0) % Douglas % (Auto) (0.0-7.3) % Eos % (Auto) (0.0-4.3) % Baso % (Auto) (0.0-1.8) % Lymph # (Auto) (1.2-5.4) K/mm3 Douglas # (Auto) (0.0-0.8) K/mm3 Eos # (Auto) (0.0-0.4) K/mm3 Baso # (Auto) (0.0-0.1) K/mm3 Seg Neutrophils % (40.0-70.0) % Seg Neutrophils # (1.8-7.7) K/mm3 Sodium (137-145) mmol/L Potassium (3.6-5.0) mmol/L Chloride (98-107) mmol/L Carbon Dioxide (22-30) mmol/L Anion Gap mmol/L BUN (9-20) mg/dL Creatinine (0.8-1.3) mg/dL Estimated GFR ml/min BUN/Creatinine Ratio % Glucose (75-100) mg/dL Calcium (8.4-10.2) mg/dL Total Bilirubin (0.1-1.2) mg/dL AST (5-40) units/L ALT (7-56) units/L Alkaline Phosphatase (35-129) units/L Total Protein (6.3-8.2) g/dL Albumin (3.9-5) g/dL Albumin/Globulin Ratio % Lipase (13-60) units/L Urine Color Yellow (Yellow) Urine Turbidity Clear (Clear) Urine pH 5.0 (5.0-7.0) Ur Specific [place] 1.013 (1.003-1.030) Urine Protein <15 mg/dl (Negative) mg/dL Urine Glucose (UA) Neg (Negative) mg/dL Urine Ketones Neg (Negative) mg/dL Urine Blood Sm (Negative) Urine Nitrite Neg (Negative) Urine Bilirubin Neg (Negative) Urine Urobilinogen < 2.0 (<2.0) mg/dL Ur Leukocyte Esterase Neg (Negative) Urine WBC (Auto) < 1.0 (0.0-6.0) /HPF Urine RBC (Auto) 1.0 (0.0-6.0) /HPF U Epithel Cells (Auto) < 1.0 (0-13.0) /HPF - Radiology Data Radiology results: report reviewed Ordering Physician: DAVE MALDONADO Date of Service: 04/09/21 Procedure(s): XR chest routine 2V Accession Number(s): [id number] cc: DAVE MALDONADO Fluoro Time In Minutes: XR chest routine 2V INDICATION / CLINICAL INFORMATION: cough, wheezing COMPARISON: X-ray 10/03/2020 FINDINGS: SUPPORT DEVICES: None. HEART / MEDIASTINUM: No significant abnormality. LUNGS / PLEURA: Lungs are clear. Costophrenic sulci are sharp. No pneumothorax. ADDITIONAL FINDINGS: No significant additional findings. IMPRESSION: 1. No acute findings. Signer Name: Sen Webster MD Signed: 04/09/2021 12:29 PM Workstation Name: [id number] Transcribed By: Dictated By: Sen Webster MD Electronically Authenticated By: Sen Webster MD Signed Date/Time: 04/09/21 122 DD/ 122 TD/TT: Ordering Physician: DAVE MALDONADO Date of Service: 04/09/21 Procedure(s): CT abdomen pelvis w con Accession Number(s): [id number] cc: DAVE MALDONADO CT abdomen pelvis w con INDICATION: LLQ abd pain, decreased urination. COMPARISON: 06/25/2019 TECHNIQUE: Abdominal and pelvic CT exam performed. All CT scans at this [facility] are performed using CT dose reduction for ALARA by means of automated exposure control. FINDINGS: CT ABDOMEN and PELVIS: Lung Bases: No significant abnormality. Liver: No significant abnormality. Biliary: No significant abnormality. Spleen: No significant abnormality. Pancreas: No significant abnormality. Adrenals: Bilateral adenomatous hyperplasia. Kidneys: Small subcentimeter hypoattenuating lesions likely cysts. Lymphatics: No lymphadenopathy. Vasculature: Atherosclerotic but nonaneurysmal abdominal aorta. Bowel: Small quantity of stranding along the sigmoid colon with central dot of soft tissue attenuation on image 135 of se 602. No associated diverticula. Normal appendix. Pelvis: No significant abnormality. Osseous Structures: No aggressive osseous lesion. Advanced left hip osteoarthritis. Additional Findings: None IMPRESSION: 1. Findings consistent with sigmoid epiploic appendagitis. Signer Name: Sen Webster MD Signed: 04/09/2021 1:00 PM Workstation Name: [email or web address] Transcribed By: CS Dictated By: Sen Webster MD Electronically Authenticated By: Sen Webster MD Signed Date/Time: 04/09/21 1300 DD/ 1250 TD/TT: Print - Medical Decision Making Patient is a 60-year-old male presents emergency room with complaints of lower abdominal pain that began a couple days ago. He states it is intermittent sharp stabbing pain. He states he believes he is not urinating as much as he is drinking. He still is able to urinate and does not have any difficulty with stream or dysuria or hematuria. He denies any pain or swelling in the testicle s. He denies any fever, nausea, vomiting, diarrhea, hematochezia, melena, hematemesis. He states he had a normal bowel movement this morning. He states he previously used to be a heavy drinker but stopped. Patient states that he is also had a cough for a couple of days and occasional wheezing after coughing. He denies any chest pain or shortness of breath. He is a smoker. Past medical history of diabetes and hypertension. No allergies to medications. He has no previous past abdominal surgical history. Vitals are normal. On exam: Left lower quadrant tenderness palpation, no guarding, no rebound, no rigidity, no masses, no peritoneal signs. Vitals are normal. Labs are stable. UA is within normal limits. CT abdomen pelvis with IV contrast: 1. Findings consistent with sigmoid epiploic appendagitis. CXR: 1. No acute findings. do Not suspect bacterial pneumonia or bacterial bronchitis, cough and occasional wheezing likely secondary to his tobacco use versus viral bronchitis. discussed case with Dr. Miranda, ER attending who advised to speak to general surgery. Spoke with Dr. Arreguin, general surgery regarding patient presentation and results, advised to place patient on Augmentin for 7 days, give NSAIDs and encourage soft diet and have patient follow-up outpatient with GI. Patient given prescription for medication. Advised patient Please take medication as prescribed. Do not drive or operate machinery while taking severe pain medication. Increase your water intake. Please eat a soft diet. Follow-up with a GI doctor. Follow-up with your primary care doctor. Return to emergency room for any new or worsening of. Critical care attestation.: If time is entered above; I have spent that time in minutes in the direct care of this critically ill patient, excluding procedure time. ED Disposition Clinical Impression: Epiploic appendagitis, Cough, Tobacco use Abdominal pain Qualifiers: Abdominal location: left lower quadrant Qualified Code(s): R10.32 - Left lower quadrant pain Disposition: TO HOME OR SELFCARE Is pt being admited?: No Does the pt Need Aspirin: No Condition: Stable Instructions: Soft-Food Eating Plan, Abdominal Pain, Adult, [id number], Steps to Quit Smoking Additional Instructions: Please take medication as prescribed. Do not drive or operate machinery while taking severe pain medication. Increase your water intake. Please eat a soft diet. Follow-up with a GI doctor. Follow-up with your primary care doctor. Return to emergency room for any new or worsening of. Prescriptions: Amoxicillin/Potassium Clav [Augmentin 875-125 Tablet] 1 each PO BID 10 Days #20 tablet Ibuprofen [Motrin 600 MG tab] 600 mg PO Q8H PRN #20 tablet PRN Reason: Pain Albuterol Sulfate [Proventil Hfa] 1 puff IH TID PRN #1 hfa.aer.ad PRN Reason: wheezing Benzonatate [Tessalon Perles] 100 mg PO Q8HR PRN #12 capsule PRN Reason: cough traMADoL [Ultram 50 MG tab] 50 mg PO Q8HR PRN #10 tablet PRN Reason: Pain , Severe (7-10) Referrals: [facility] [Provider Group] - 2-3 Days your, primary care doctor [Other] - 2-3 Days Time of Disposition: 13:19 Print Language: PALESTINIAN
--- NOTE | 2021-04-09 12:44 | XRay Report ---
XR chest routine 2V INDICATION / CLINICAL INFORMATION: cough, wheezing COMPARISON: X-ray 10/03/2020 FINDINGS: SUPPORT DEVICES: None. HEART / MEDIASTINUM: No significant abnormality. LUNGS / PLEURA: Lungs are clear. Costophrenic sulci are sharp. No pneumothorax. ADDITIONAL FINDINGS: No significant additional findings. IMPRESSION: 1. No acute findings. Signer Name: Sen Webster MD Signed: 04/09/2021 12:29 PM Workstation Name: [email or web address]
--- NOTE | 2021-04-09 13:04 | Cat Scan Report ---
CT abdomen pelvis w con INDICATION: LLQ abd pain, decreased urination. COMPARISON: 06/25/2019 TECHNIQUE: Abdominal and pelvic CT exam performed. All CT scans at this location are performed using CT dose reduction for ALARA by means of automated exposure control. FINDINGS: CT ABDOMEN and PELVIS: Lung Bases: No significant abnormality. Liver: No significant abnormality. Biliary: No significant abnormality. Spleen: No significant abnormality. Pancreas: No significant abnormality. Adrenals: Bilateral adenomatous hyperplasia. Kidneys: Small subcentimeter hypoattenuating lesions likely cysts. Lymphatics: No lymphadenopathy. Vasculature: Atherosclerotic but nonaneurysmal abdominal aorta. Bowel: Small quantity of stranding along the sigmoid colon with central dot of soft tissue attenuatio n on image 135 [address] se 602. No associated diverticula. Normal appendix. Pelvis: No significant abnormality. Osseous Structures: No aggressive osseous lesion. Advanced left hip osteoarthritis. Additional Findings: None IMPRESSION: 1. Findings consistent with sigmoid epiploic appendagitis. Signer Name: Sen Webster MD Signed: 04/09/2021 1:00 PM Workstation Name: [email or web address]
== END 2021-04-09 13:37 | disposition home or self-care (01) ==
LOC: ED 09:08
DX: K63.89 Other specified diseases of intestine (principal); F17.200 Nicotine dependence, unspecified, uncomplicated; R05 Cough; E11.9 Type 2 diabetes mellitus without complications
CPT/HCPCS: 36415; 36569; 71046; 74177; 80053; 81001; 83690; 85025; 99284; Q9967

== ENCOUNTER 2022-03-23 08:30 | Observation (INO) | payer MEDICARE ==
--- NOTE | 2022-03-23 09:23 | XRay Report ---
XR chest routine 2V INDICATION / CLINICAL INFORMATION: CHEST PAIN COMPARISON: April 09 2021 FINDINGS: SUPPORT DEVICES: None. HEART / MEDIASTINUM: No significant abnormality. LUNGS / PLEURA: Lungs are clear. Costophrenic sulci are sharp. No pneumothorax. ADDITIONAL FINDINGS: Left shoulder postoperative changes. No significant additional findings. IMPRESSION: 1. No acute findings. Signer Name: Sen Webster MD Signed: 03/23/2022 9:19 AM Workstation Name: [id number]
[2022-03-23 10:28] LABS: Basophils % (Auto) 0.6 % (0.0-1.8); Eosinophils # (Auto) 0.1 K/mm3 (0.0-0.4); Eosinophils % (Auto) 2.2 % (0.0-4.3); Hematocrit 39.2 % (35.5-45.6); Hemoglobin 12.9 gm/dl (11.8-15.2); Lymphocytes # (Auto) 2.7 K/mm3 (1.2-5.4); Lymphocytes % (Auto) 39.5 % (13.4-35.0); Mean Corpuscular HGB Conc 33 % (32-34); Mean Corpuscular Volume 84 fl (84-94); Monocytes # (Auto) 0.6 K/mm3 (0.0-0.8); Platelet Count 211 K/mm3 (140-440); Red Blood Count 4.68 M/mm3 (3.65-5.03); Red Cell Distribution Width 18.1 % (13.2-15.2)
[2022-03-23 10:51] LABS: Alanine Aminotransferase 18 units/L (7-56); Albumin 4.2 g/dL (3.9-5); BUN/Creatinine Ratio 12; Blood Urea Nitrogen 11 mg/dL (9-20); Calcium 9.7 mg/dL (8.4-10.2); Hemolysis Index 2
--- NOTE | 2022-03-24 01:14 | Emergency Department Report ---
ED Chest Pain HPI - General Chief Complaint: Chest Pain Stated Complaint: CHEST PAIN Time Seen by Provider: 03/24/22 00:48 Source: patient Mode of arrival: Ambulatory Limitations: No Limitations - History of Present Illness Initial Comments: 61-year-old morbidly obese male with multiple medical comorbidities presents for evaluation of substernal chest pain. Pain is pressure-like intermittent and associated with shortness of breath. Patient reports has not taken any medications at home for symptoms. No cough or URI symptoms. No aggravators or alleviators. 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 and underwent a stress test "which was normal." Pain currently 6 out of 10 MD Complaint: chest pain -: Sudden Onset: during rest Pain Location: substernal Pain Radiation: none Severity: moderate Severity scale (0 -10): 7 Quality: heaviness, pressure Consistency: intermittent Improves With: nothing Worsens With: nothing re: dyspnea Other Symptoms: denies: cough, fever, syncope, rash, acid taste in mouth, leg swelling, palpitations, burping, other Treatments Prior to Arrival: none Aspirin use within the Past 7 Days: (0) No - Related Data On Oral Contraceptives: No (pt is biologically male; n/a) Previous Rx's Medication Instructions Recorded Last Taken Type Atorvastatin Calcium [Lipitor] 40 mg PO HS #30 tablet 11/11/18 Unknown Rx Metformin HCl [metFORMIN ER 500 mg PO QPM #30 [id number] 11/11/18 Unknown Rx Gastric] Docusate Sodium [Colace CAP] 100 mg PO BID PRN #20 capsule 01/10/20 Unknown Rx Albuterol Mdi (or & Nicu Only) 2 puff IH QID PRN #8.5 gram 05/30/20 Unknown Rx [ProAir HFA Inhaler] Aspirin 325 mg PO QDAY #30 tablet 10/04/20 Unknown Rx Pantoprazole [Protonix] 40 mg PO QDAY #30 tablet 10/04/20 Unknown Rx Albuterol Sulfate [Proventil Hfa] 1 puff IH TID PRN #1 [email or web address] 04/09/21 Unknown Rx Amoxicillin/Potassium Clav 1 each PO BID 10 Days #20 tablet 04/09/21 Unknown Rx [Augmentin 875-125 Tablet] Benzonatate [Tessalon Perles] 100 mg PO Q8HR PRN #12 capsule 04/09/21 Unknown Rx Ibuprofen [Motrin 600 MG tab] 600 mg PO Q8H PRN #20 tablet 04/09/21 Unknown Rx traMADoL [Ultram 50 MG tab] 50 mg PO Q8HR PRN #10 tablet 04/09/21 Unknown Rx Allergies Allergy/AdvReac Type Severity Reaction Status Date / Time No Known Allergies Allergy Verified 04/09/21 09:36 Heart Score - HEART Score History: Moderately suspicious EKG: Normal Age: 45-65 Risk factors: > 3 risk factors or hx of atherosclerotic disease Troponin: 1-3x normal limit HEART Score: 5 - EKG Read Time Time EKG Completed: 08:55 EKG Read Time: 08:55 - Critical Actions Critical Actions: 4-6 pts:12-16.6% risk of adverse cardiac event. Should be admitted (5) ED Review of Systems ROS: Stated complaint: CHEST PAIN Other details as noted in HPI Comment: All other systems reviewed and negative Constitutional: no symptoms reported Eyes: denies: eye pain, eye discharge, vision change ENT: denies: ear pain, throat pain, dental pain, hearing loss, epistaxis Respiratory: shortness of breath, SOB with exertion. denies: no symptoms reported, see HPI, cough, orthopnea, SOB at rest, stridor, wheezing Cardiovascular: chest pain Endocrine: no symptoms reported. denies: see HPI, excessive sweating, flushing, increased hunger, increased thirst, increased urine, unexplained weight gain, unexplained weight loss Gastrointestinal: denies: as per HPI, abdominal pain, nausea, vomiting, diarrhea, constipation, hematemesis, melena, hematochezia Genitourinary: denies: urgency, dysuria, frequency, hematuria, discharge, testicular pain, testicular mass Musculoskeletal: denies: back pain, joint swelling, arthralgia Skin: denies: rash, lesions, change in color, change in hair/nails, pruritus, other Psychiatric: denies: anxiety, depression, auditory hallucinations, visual hallucinations, homicidal thoughts Hematological/Lymphatic: denies: easy bleeding, easy bruising, swollen glands ED Past Medical Hx - Past Medical History Hx Hypertension: Yes Hx Congestive Heart Failure: No Hx Diabetes: Yes Hx Asthma: No Hx COPD: No Additional medical history: Pneumonia - Surgical History Past Surgical History?: Yes Additional Surgical History: [place] to left femur. p fx 6 y ago; until time of fall in May it has not given him problems. - Social History Smoking Status: Never Smoker - Medications Home Medications: Home Medications Medication Instructions Recorded Confirmed Last Taken Type Atorvastatin Calcium [Lipitor] 40 mg PO HS #30 tablet 11/11/18 Unknown Rx Metformin HCl [metFORMIN ER 500 mg PO QPM #30 [id number] 11/11/18 Unknown Rx Gastric] Docusate Sodium [Colace CAP] 100 mg PO BID PRN #20 capsule 01/10/20 Unknown Rx Albuterol Mdi (or & Nicu Only) 2 puff IH QID PRN #8.5 gram 05/30/20 Unknown Rx [ProAir HFA Inhaler] Aspirin 325 mg PO QDAY #30 tablet 10/04/20 Unknown Rx Pantoprazole [Protonix] 40 mg PO QDAY #30 tablet 10/04/20 Unknown Rx Albuterol Sulfate [Proventil Hfa] 1 puff IH TID PRN #1 [email or web address] 04/09/21 Unknown Rx Amoxicillin/Potassium Clav 1 each PO BID 10 Days #20 tablet 04/09/21 Unknown Rx [Augmentin 875-125 Tablet] Benzonatate [Tessalon Perles] 100 mg PO Q8HR PRN #12 capsule 04/09/21 Unknown Rx Ibuprofen [Motrin 600 MG tab] 600 mg PO Q8H PRN #20 tablet 04/09/21 Unknown Rx traMADoL [Ultram 50 MG tab] 50 mg PO Q8HR PRN #10 tablet 04/09/21 Unknown Rx ED Physical Exam - General Limitations: No Limitations General appearance: alert, anxious - Head Head exam: Present: atraumatic, normocephalic, normal inspection - Eye Eye exam: Present: normal appearance, PERRL, EOMI Pupils: Present: normal accommodation - ENT ENT exam: Present: normal exam, normal orophraynx, mucous membranes moist - Neck Neck exam: Present: normal inspection, full ROM. Absent: tenderness, meningismus, lymphadenopathy, thyromegaly, other - Respiratory Respiratory exam: Present: normal lung sounds bilaterally. Absent: respiratory distress, wheezes, rales, rhonchi, stridor, chest wall tenderness, accessory muscle use, decreased breath sounds, prolonged expiratory, other - Cardiovascular Cardiovascular Exam: Present: regular rate, normal rhythm, normal heart sounds. Absent: bradycardia, tachycardia, irregular rhythm, systolic murmur, diastolic murmur, rubs, gallop, clicks, JVD, S3 - GI/Abdominal GI/Abdominal exam: Present: soft, normal bowel sounds. Absent: distended, tenderness, rigid, diminished bowel sounds, hyperactive bowel sounds, hypoactive bowel sounds, organomegaly, mass, bruit, pulsatile mass, hernia, other - Extremities Exam Extremities exam: Present: normal inspection, full ROM, normal capillary refill - Back Exam Back exam: Present: normal inspection, full ROM - Neurological Exam Neurological exam: Present: alert, oriented X3, CN II-XII intact, normal gait, m otor sensory deficit, reflexes normal - Psychiatric Psychiatric exam: Present: normal affect, normal mood - Skin Skin exam: Present: warm, dry, intact, normal color ED Course Vital Signs 03/23/22 03/23/22 03/24/22 08:53 09:33 00:30 Temperature 99.2 F Pulse Rate 54 L 51 L Respiratory 18 16 Rate Blood Pressure 204/107 Blood Pressure 174/88 145/79 [Right] O2 Sat by Pulse 98 95 Oximetry 03/24/22 03/24/22 03/24/22 00:46 01:00 01:16 Temperature Pulse Rate 48 L 51 L 48 L Respiratory 16 14 14 Rate Blood Pressure 145/79 158/79 157/87 Blood Pressure [Right] O2 Sat by Pulse 94 95 Oximetry 03/24/22 03/24/22 03/24/22 01:30 01:46 02:00 Temperature Pulse Rate 52 L 47 L 50 L Respiratory 19 16 17 Rate Blood Pressure 157/87 154/84 163/97 Blood Pressure [Right] O2 Sat by Pulse 96 95 96 Oximetry 03/24/22 03/24/22 03/24/22 02:16 02:30 02:46 Temperature Pulse Rate 45 L 50 L 46 L Respiratory 15 16 18 Rate Blood Pressure 165/86 165/86 175/96 Blood Pressure [Right] O2 Sat by Pulse 95 97 Oximetry 03/24/22 03:00 Temperature Pulse Rate 52 L Respiratory 17 Rate Blood Pressure 160/85 Blood Pressure [Right] O2 Sat by Pulse 98 Oximetry - Reevaluation(s) Reevaluation #1: 03/24/22 03:47 Patient is comfortable and well-appearing, denies any plaints after being given aspirin,. Given that the patient's heart rate was in the high 40s low 50s, nitroglycerin will be withheld. 03/24/22 03:48 ROBERTO score - Roberto Score Age > 65: (0) No (3) Aspirin use within the Past 7 Days: (1) Yes 3 or more CAD Risk Factors: (1) Yes 2 or more Angina events in past 24 hrs: (1) Yes Known CAD with more than 50% Stenosis: (0) No Elevated Cardiac Markers: (0) No ST Deviation Greater than 0.5mm: (0) No ROBERTO Score: 3 ED Medical Decision Making - Lab Data Result diagrams: 03/23/22 09:26 03/23/22 09:26 - EKG Data -: EKG Interpreted by Me EKG shows normal: sinus rhythm Rate: normal - EKG Data When compared to previous EKG there are: no significant change Interpretation: no acute changes, normal EKG - Radiology Data Radiology results: report reviewed - Medical Decision Making 61 morbidly obese male with multiple medical comorbidities presents for eval uation of chest pain. Vital signs stable. Patient underwent serial cardiac enzymes here which were unremarkable. EKG normal. Heart score is 5. Given patient's significant risk factors, patient will require inpatient admission for rule out acute coronary syndrome. He was given full dose aspirin here. Case reviewed with admitting hospitalist, Dr. Sylvester. He is excepted the patient for inpatient admission. Critical care attestation.: If time is entered above; I have spent that time in minutes in the direct care of this critically ill patient, excluding procedure time. ED Disposition Clinical Impression: Chest pain Disposition: ADMITTED INPATIENT Is pt being admited?: Yes Does the pt Need Aspirin: Yes Instructions: Nonspecific Chest Pain, Adult
[2022-03-24] MEDS ORDERED: NITROGLYCERIN 0.4 MG TAB SUBL SL ONE (02:12)
[2022-03-24] MEDS ORDERED: ASPIRIN 81 MG TAB CHEW PO ONE (02:20)
[2022-03-24] MEDS ORDERED: NITROGLYCERIN 0.4 MG TAB SUBL SL PRN (03:39)
[2022-03-24] MEDS ORDERED: DEXTROSE 50% IN WATER (25GM) 50 ML SYRINGE IV PRN (03:39)
[2022-03-24] MEDS ORDERED: ACETAMINOPHEN 325 MG TAB PO PRN (03:39)
[2022-03-24] MEDS ORDERED: traMADol 50 MG TAB PO PRN (03:39)
[2022-03-24] MEDS ORDERED: MORPHINE 2 MG/1 ML INJ IV PRN (03:39)
[2022-03-24] MEDS ORDERED: DOCUSATE SODIUM 100 MG CAP PO PRN (03:42)
[2022-03-24] MEDS ORDERED: BENZONATATE 100 MG CAP PO PRN (03:42)
[2022-03-24] MEDS ORDERED: SODIUM CHLORIDE 0.9% 1000 ML 1,000 ML IV SCH (03:45)
--- NOTE | 2022-03-24 03:48 | History and Physical Report ---
History of Present Illness Date of examination: 03/24/22 Date of admission: 03/24/22 Chief complaint: Chest pain History of present illness: 61 years old male with past medical history of diabetes, hypertension and hyperlipidemia was brought to the emergency room because of chest pain for the last 1 day. Pain is pressure-like intermittent and associated with shortness of breath. Patient reports has not taken any medications at home for symptoms. No cough or URI symptoms. No aggravators or alleviators. 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 Initial cardiac enzyme in the emergency room is 0.010. We will going to admit the patient we will put the patient on chest pain pathway we do the serial cardiac enzyme we also consult cardiology evaluation Past History Past Medical History: diabetes, hypertension, hyperlipidemia Past Surgical History: Other ([place] to left femur. p fx 6 y ago; until time of fall in May it has not given him problems.) Social history: smoking Family history: diabetes, hypertension Medications and Allergies Allergies Allergy/AdvReac Type Severity Reaction Status Date / Time No Known Allergies Allergy Verified 04/09/21 09:36 Home Medications Medication Instructions Recorded Confirmed Last Taken Type Atorvastatin Calcium [Lipitor] 40 mg PO HS #30 tablet 11/11/18 Unknown Rx Metformin HCl [metFORMIN ER 500 mg PO QPM #30 [id number] 11/11/18 Unknown Rx Gastric] Docusate Sodium [Colace CAP] 100 mg PO BID PRN #20 capsule 01/10/20 Unknown Rx Albuterol Mdi (or & Nicu Only) 2 puff IH QID PRN #8.5 gram 05/30/20 Unknown Rx [ProAir HFA Inhaler] Aspirin 325 mg PO QDAY #30 tablet 10/04/20 Unknown Rx Pantoprazole [Protonix] 40 mg PO QDAY #30 tablet 10/04/20 Unknown Rx Albuterol Sulfate [Proventil Hfa] 1 puff IH TID PRN #1 hfa.aer.ad 04/09/21 Unknown Rx Amoxicillin/Potassium Clav 1 each PO BID 10 Days #20 tablet 04/09/21 Unknown Rx [Augmentin 875-125 Tablet] Benzonatate [Tessalon Perles] 100 mg PO Q8HR PRN #12 capsule 04/09/21 Unknown Rx Ibuprofen [Motrin 600 MG tab] 600 mg PO Q8H PRN #20 tablet 04/09/21 Unknown Rx traMADoL [Ultram 50 MG tab] 50 mg PO Q8HR PRN #10 tablet 04/09/21 Unknown Rx Active Meds: Active Medications Acetaminophen (Acetaminophen 325 Mg Tab) 650 mg PO Q6H PRN PRN Reason: Pain, Mild (1-3) Amoxicillin/Clavulanate Potassium (Amoxicillin/K Clav 875/125mg Tab) 1 each PO BID [facility]; Protocol Aspirin (Aspirin Ec 325 Mg Tab) 325 mg PO QDAY [facility] Aspirin (Aspirin 325 Mg Tab) 325 mg PO QDAY [facility] Atorvastatin Calcium (Atorvastatin 40 Mg Tab) 40 mg PO QHS [facility] Atorvastatin Calcium (Atorvastatin 40 Mg Tab) 40 mg PO HS [facility] Benzonatate (Benzonatate 100 Mg Cap) 100 mg PO Q8HR PRN PRN Reason: cough Dextrose (Dextrose 50% In Water (25gm) 50 Ml Syringe) 50 ml IV Q30MIN PRN; Protocol PRN Reason: Hypoglycemia Docusate Sodium (Docusate Sodium 100 Mg Cap) 100 mg PO BID PRN PRN Reason: Constipation Heparin Sodium (Porcine) (Heparin 5,000 Unit/1 Ml Vial) 5,000 unit SUB-Q Q12HR [facility] Sodium Chloride (Nacl 0.9% 1000 Ml) 1,000 mls @ 100 mls/hr IV DIRECT [facility] Insulin Human Lispro (Insulin Lispro 100 Unit/Ml) 0 unit SUB-Q Q6HR [facility]; Protocol Morphine Sulfate (Morphine 4 Mg/1 Ml Inj) 2 mg IV Q5MIN PRN PRN Reason: Chest Pain unrelieved by NTG Nitroglycerin (Nitroglycerin 0.4 Mg Tab Subl) 0.4 mg SL Q5M PRN PRN Reason: Chest Pain Pantoprazole Sodium (Pantoprazole 40 Mg Tab) 40 mg PO QDAY [facility] Pantoprazole Sodium (Pantoprazole 40 Mg Tab) 40 mg PO QDAY [facility] Sodium Chloride (Sodium Chloride 0.9% 10 Ml Flush Syringe) 10 ml IV PRN PRN PRN Reason: LINE FLUSH Tramadol HCl (Tramadol 50 Mg Tab) 50 mg PO Q6H PRN PRN Reason: Pain, Moderate (4-6) Review of Systems All systems: negative Cardiovascular: chest pain, shortness of breath, dyspnea on exertion Respiratory: shortness of breath, dyspnea on exertion Exam - Constitutional Vitals: Temp Pulse Resp BP Pulse Ox 99.2 F 52 L 17 160/85 98 03/23/22 08:53 03/24/22 03:00 03/24/22 03:00 03/24/22 03:00 03/24/22 03:00 General appearance: Present: no acute distress, well-nourished - EENT Eyes: Present: PERRL ENT: hearing intact, clear oral mucosa - Neck Neck: Present: supple, normal ROM - Respiratory Respiratory effort: normal Respiratory: bilateral: CTA - Cardiovascular Heart Sounds: Present: S1 & S2. Absent: rub, click - Extremities Extremities: pulses symmetrical, No edema Peripheral Pulses: within normal limits - Abdominal General gastrointestinal: Present: soft, non-tender, non-distended, normal bowel sounds Male genitourinary: Present: normal - Integumentary Integumentary: Present: clear, warm, dry - Musculoskeletal Musculoskeletal: gait normal, strength equal bilaterally - Psychiatric Psychiatric: appropriate mood/affect, intact judgment & insight - Neurologic Neurologic: CNII-XII intact, moves all extremities HEART Score - HEART Score Troponin: Troponin T < 0.010 ng/mL (0.00-0.029) 03/23/22 11:44 Results - Labs CBC & Chem 7: 03/23/22 09:26 03/23/22 09:26 Labs: Laboratory Last Values WBC 6.7 K/mm3 (4.5-11.0) 03/23/22 09:26 RBC 4.68 M/mm3 (3.65-5.03) 03/23/22 09:26 Hgb 12.9 gm/dl (11.8-15.2) 03/23/22 09:26 Hct 39.2 % (35.5-45.6) 03/23/22 09:26 MCV 84 fl (84-94) 03/23/22 09:26 MCH 28 pg (28-32) 03/23/22 09:26 MCHC 33 % (32-34) 03/23/22 09:26 RDW 18.1 % (13.2-15.2) H 03/23/22 09:26 Plt Count 211 K/mm3 (140-440) 03/23/22 09:26 Lymph % (Auto) 39.5 % (13.4-35.0) H 03/23/22 09:26 [place] % (Auto) 9.0 % (0.0-7.3) H 03/23/22 09:26 Eos % (Auto) 2.2 % (0.0-4.3) 03/23/22 09:26 Baso % (Auto) 0.6 % (0.0-1.8) 03/23/22 09:26 Lymph # (Auto) 2.7 K/mm3 (1.2-5.4) 03/23/22 09:26 [place] # (Auto) 0.6 K/mm3 (0.0-0.8) 03/23/22 09:26 Eos # (Auto) 0.1 K/mm3 (0.0-0.4) 03/23/22 09:26 Baso # (Auto) 0.0 K/mm3 (0.0-0.1) 03/23/22 09:26 Seg Neutrophils % 48.7 % (40.0-70.0) 03/23/22 09:26 Seg Neutrophils # 3.3 K/mm3 (1.8-7.7) 03/23/22 09:26 Sodium 139 mmol/L (137-145) 03/23/22 09:26 Potassium 3.7 mmol/L (3.6-5.0) 03/23/22 09:26 Chloride 103.7 mmol/L (98-107) 03/23/22 09:26 Carbon Dioxide 21 mmol/L (22-30) L 03/23/22 09:26 Anion Gap 18 mmol/L 03/23/22 09:26 BUN 11 mg/dL (9-20) 03/23/22 09:26 Creatinine 0.9 mg/dL (0.8-1.3) 03/23/22 09:26 Estimated GFR > 60 ml/min 03/23/22 09:26 BUN/Creatinine Ratio 12 % 03/23/22 09:26 Glucose 94 mg/dL (75-100) 03/23/22 09:26 Calcium 9.7 mg/dL (8.4-10.2) 03/23/22 09:26 Total Bilirubin 0.40 mg/dL (0.1-1.2) 03/23/22 09:26 AST 20 units/L (5-40) 03/23/22 09:26 ALT 18 units/L (7-56) 03/23/22 09:26 Alkaline Phosphatase 78 units/L (35-129) 03/23/22 09:26 Troponin T < 0.010 ng/mL (0.00-0.029) 03/23/22 11:44 Total Protein 8.0 g/dL (6.3-8.2) 03/23/22 09:26 Albumin 4.2 g/dL (3.9-5) 03/23/22 09:26 Albumin/Globulin Ratio 1.1 % 03/23/22 09:26 - Imaging and Cardiology Chest x-ray: report reviewed Assessment and Plan VTE prophylaxis?: Chemical Plan of care discussed with patient/family: Yes - Patient Problems (1) ACS (acute coronary syndrome) Current Visit: Yes Status: Acute Plan to address problem: Admit the patient to the medical telemetry. Aspirin 325 mg p.o. daily. Lipitor 40 mg p.o. daily. Nitroglycerin as needed. Serial cardiac enzymes. Echocardiogram. Cardiology consult (2) Diabetes mellitus Current Visit: Yes Status: Acute Plan to address problem: Accu-Chek every 6 hours with Humalog moderate dose coverage as. Diabetic education. Recheck BMP in the morning (3) Hyperlipemia Current Visit: Yes Status: Acute Plan to address problem: Resume home statin (4) Hypertension Current Visit: Yes Status: Acute Plan to address problem: Monitor blood pressure Resume home antihypertensive meds As needed hydralazine, adjust blood pressure medicine if needed (5) Morbid obesity Current Visit: Yes Status: Acute Plan to address problem: Patient counseled regarding weight reduction. We will refer to outpatient bariatric surgery (6) Tobacco abuse Current Visit: Yes Status: Acute Plan to address problem: We counseled the patient regarding quitting smoking. We will put the patient on nicotine patch (7) DVT prophylaxis Current Visit: No Status: Acute Plan to address problem: Heparin 5000 units subcu every 12 hours for DVT prophylaxis. Pepcid 20 mg p.o. twice daily for GI prophylaxis. Patient is a full code
[2022-03-24 04:04] LABS: Basophils # (Auto) 0.1 K/mm3 (0.0-0.1); Basophils % (Auto) 0.9 % (0.0-1.8); Eosinophils # (Auto) 0.2 K/mm3 (0.0-0.4); Hematocrit 36.9 % (35.5-45.6); Hemoglobin 12.4 gm/dl (11.8-15.2); Lymphocytes % (Auto) 38.1 % (13.4-35.0); Mean Corpuscular HGB Conc 34 % (32-34); Mean Corpuscular Volume 83 fl (84-94); Monocytes # (Auto) 0.6 K/mm3 (0.0-0.8); Monocytes % (Auto) 7.4 % (0.0-7.3); Platelet Count 204 K/mm3 (140-440); Red Blood Count 4.45 M/mm3 (3.65-5.03); Red Cell Distribution Width 17.8 % (13.2-15.2)
[2022-03-24] MEDS ORDERED: NICOTINE 14 MG/24 HR PATCH TD ONE (04:15)
[2022-03-24 04:25] LABS: BUN/Creatinine Ratio 11; Blood Urea Nitrogen 12 mg/dL (9-20); Calcium 9.7 mg/dL (8.4-10.2); Hemolysis Index 3
[2022-03-24] MEDS: INSULIN LISPRO 100 UNIT/ML SUB-Q SCH ×3 (06:00→18:26)
--- NOTE | 2022-03-24 08:59 | Electrocardiograph Report ---
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
--- NOTE | 2022-03-24 09:02 | Electrocardiograph Report ---
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
[2022-03-24] MEDS ORDERED: REGADENOSON 0.4 MG/5 ML INJ IV ONE (09:07)
--- NOTE | 2022-03-24 09:56 | Consultation ---
History of Present Illness Consult date: 03/24/22 Requesting physician: DAPHNEY BETANCOURT Consult reason: other (ACS) History of present illness: Patient is a 61-year-old male with a past medical history of hypertension, diabetes, hyperlipidemia, and tobacco use who presents with a complaint of chest pain which began Tuesday morning. Patient states he had a constant chest pain that lasted all day Tuesday with no relief. He describes chest pain as 6 out of 10 and says pain was worsened with motion. Describes pain as sharp. Patient came to the ED to be further evaluated he denies any shortness of breath, nausea, vomiting, diaphoresis. At time of interview patient is currently chest pain-free. Patient reports that he followed up with [facility] for his medications and states that he is compliant with all his medications. Patient was previously seen by our practice during admission in 2020 however has not followed up with us. Cardiology is consulted for ACS. Past History Past Medical History: diabetes, hypertension, hyperlipidemia Past Surgical History: Other ([place] to left femur. p fx 6 y ago; until time of fall in May it has not given him problems.) Social history: smoking Family history: diabetes, hypertension Medications and Allergies Allergies Allergy/AdvReac Type Severity Reaction Status Date / Time No Known Allergies Allergy Verified 04/09/21 09:36 Home Medications Medication Instructions Recorded Confirmed Last Taken Type Atorvastatin Calcium [Lipitor] 40 mg PO HS #30 tablet 11/11/18 03/24/22 03/22/22 21:00 Rx Metformin HCl [metFORMIN ER 500 mg PO QPM #30 [id number] 11/11/18 03/24/22 Unknown Rx Gastric] Docusate Sodium [Colace CAP] 100 mg PO BID PRN #20 capsule 01/10/20 03/24/22 Unknown Rx Albuterol Mdi (or & Nicu Only) 2 puff IH QID PRN #8.5 gram 05/30/20 03/24/22 Unknown Rx [ProAir HFA Inhaler] Aspirin 325 mg PO QDAY #30 tablet 10/04/20 03/24/22 Unknown Rx Pantoprazole [Protonix] 40 mg PO QDAY #30 tablet 10/04/20 03/24/22 Unknown Rx Albuterol Sulfate [Proventil Hfa] 1 puff IH TID PRN #1 [id number] 04/09/21 03/24/22 Unknown Rx Amoxicillin/Potassium Clav 1 each PO BID 10 Days #20 tablet 04/09/21 03/24/22 Unknown Rx [Augmentin 875-125 Tablet] Benzonatate [Tessalon Perles] 100 mg PO Q8HR PRN #12 capsule 04/09/21 03/24/22 Unknown Rx Ibuprofen [Motrin 600 MG tab] 600 mg PO Q8H PRN #20 tablet 04/09/21 03/24/22 Unknown Rx traMADoL [Ultram 50 MG tab] 50 mg PO Q8HR PRN #10 tablet 04/09/21 03/24/22 Unknown Rx Losartan/Hydrochlorothiazide 1 each PO DAILY 03/24/22 03/24/22 03/23/22 09:00 History [Losartan-Hctz 100-12.5 mg Tab] Active Meds: Active Medications Acetaminophen (Acetaminophen 325 Mg Tab) 650 mg PO Q6H PRN PRN Reason: Pain, Mild (1-3) Aspirin (Aspirin Ec 325 Mg Tab) 325 mg PO QDAY [facility] Atorvastatin Calcium (Atorvastatin 40 Mg Tab) 40 mg PO QHS SHARMIN Benzonatate (Benzonatate 100 Mg Cap) 100 mg PO Q8H PRN PRN Reason: cough Dextrose (Dextrose 50% In Water (25gm) 50 Ml Syringe) 0 ml IV Q30MIN PRN; Protocol PRN Reason: Hypoglycemia Docusate Sodium (Docusate Sodium 100 Mg Cap) 100 mg PO BID PRN PRN Reason: Constipation Heparin Sodium (Porcine) (Heparin 5,000 Unit/1 Ml Vial) 5,000 unit SUB-Q Q12HR [facility] Sodium Chloride (Nacl 0.9% 1000 Ml) 1,000 mls @ 100 mls/hr IV DIRECT [facility] Insulin Human Lispro (Insulin Lispro 100 Unit/Ml) 0 unit SUB-Q Q6HR [facility]; Protocol Last Admin: 03/24/22 06:00 Dose: Not Given Morphine Sulfate (Morphine 2 Mg/1 Ml Inj) 2 mg IV Q5MIN PRN PRN Reason: Chest Pain unrelieved by NTG Nitroglycerin (Nitroglycerin 0.4 Mg Tab Subl) 0.4 mg SL Q5M PRN PRN Reason: Chest Pain Pantoprazole Sodium (Pantoprazole 40 Mg Tab) 40 mg PO QDAY [facility] Sodium Chloride (Sodium Chloride 0.9% 10 Ml Flush Syringe) 10 ml IV PRN PRN PRN Reason: LINE FLUSH Tramadol HCl (Tramadol 50 Mg Tab) 50 mg PO Q6H PRN PRN Reason: Pain, Moderate (4-6) Review of Systems Constitutional: no weight loss, no weight gain, no fever Ears, nose, mouth and throat: no sinus pressure, no sinus pain Cardiovascular: chest pain, no shortness of breath, no dyspnea on exertion Respiratory: no cough, no cough with sputum, no shortness of breath Gastrointestinal: no abdominal pain, no nausea, no vomiting Musculoskeletal: no neck stiffness, no neck pain Integumentary: no rash, no pruritis, no redness Neurological: no head injury, no transient paralysis Psychiatric: no anxiety, no memory loss Endocrine: no cold intolerance, no heat intolerance Hematologic/Lymphatic: no easy bruising, no easy bleeding Physical Examination Vital Signs Temp Pulse Resp BP Pulse Ox 99.2 F 54 L 18 204/107 98 03/23/22 08:53 03/23/22 08:53 03/23/22 08:53 03/23/22 08:53 03/23/22 08:53 General appearance: no acute distress HEENT: Positive: PERRL Neck: Positive: trachea midline Cardiac: Positive: Regular Rhythm, Bradycardia Lungs: Positive: Normal Breath Sounds Neuro: Positive: Grossly Intact Abdomen: Positive: Soft, Active Bowel Sounds Skin: Negative: Rash, Suspicious Lesions, Ulceration Extremities: Present: upper extr. pulses. Absent: edema Results 03/24/22 03:52 03/24/22 03:52 Cardiac Enzymes 03/23/22 Range/Units 09:26 AST 20 (5-40) units/L CBC 03/23/22 03/24/22 Range/Units 09:26 03:52 WBC 6.7 8.0 (4.5-11.0) K/mm3 RBC 4.68 4.45 (3.65-5.03) M/mm3 Hgb 12.9 12.4 (11.8-15.2) gm/dl Hct 39.2 36.9 (35.5-45.6) % Plt Count 211 204 (140-440) K/mm3 Lymph # (Auto) 2.7 3.0 (1.2-5.4) K/mm3 [place] # (Auto) 0.6 0.6 (0.0-0.8) K/mm3 Eos # (Auto) 0.1 0.2 (0.0-0.4) K/mm3 Baso # (Auto) 0.0 0.1 (0.0-0.1) K/mm3 Comprehensive Metabolic Panel 03/23/22 03/24/22 Range/Units 09:26 03:52 Sodium 139 139 (137-145) mmol/L Potassium 3.7 3.9 (3.6-5.0) mmol/L Chloride 103.7 100.9 (98-107) mmol/L Carbon Dioxide 21 L 25 (22-30) mmol/L BUN 11 12 (9-20) mg/dL Creatinine 0.9 1.1 (0.8-1.3) mg/dL Glucose 94 124 H (75-100) mg/dL Calcium 9.7 9.7 (8.4-10.2) mg/dL AST 20 (5-40) units/L ALT 18 (7-56) units/L Alkaline Phosphatase 78 (35-129) units/L Total Protein 8.0 (6.3-8.2) g/dL Albumin 4.2 (3.9-5) g/dL - Imaging and Cardiology Echo: pending, report reviewed EKG interpretations - Telemetry EKG Rhythm: Sinus Bradycardia - EKG Sinus rhythms and dysrhythmias: sinus bradycardia Assessment and Plan Patient is a 61-year-old male with a past medical history of hypertension, diabetes, hyperlipidemia, and tobacco use who presents with a complaint of chest pain which began Tuesday morning. Atypical chest pain Hypertension Hyperlipidemia Smoker Obesity Diabetes Echo 10/04/2020-EF 50 to 55% mild to moderate concentric LVH. Right ventricle mildly dilated. Right ventricle systolic function normal no pericardial effusion Treadmill stress test 10/07/2020-nondiagnostic for ischemia since patient unable to reach target heart rate. Patient did not have any chest pain Lexiscan MPI stress test 02/13/2020-normal pharmacological stress test Plan: EKG shows sinus bradycardia 49 with no acute ischemic changes. Troponins negative x2. AMI ruled out. Patient currently chest pain-free For the chest pain is atypical chest likely not of cardiac origin. Patient for Lexiscan MPI stress test this a.m. Patient had normal echo and normal stress test this a.m. with no signs of ischemia. See echo and stress test reports for full details Discussed importance of smoking cessation with patient Plan of care discussed with patient who verbalized understanding and acknowledgment Cardiac status otherwise stable for discharge Patient seen in conjunction with Dr. Packer who agrees this plan of care - Patient Problems (1) Atypical chest pain Current Visit: Yes Status: Acute (2) Diabetes mellitus Current Visit: Yes Status: Acute (3) Hyperlipemia Current Visit: Yes Status: Acute (4) Hypertension Current Visit: Yes Status: Acute (5) Morbid obesity Current Visit: Yes Status: Acute (6) Tobacco abuse Current Visit: Yes Status: Acute
[2022-03-24] MEDS ORDERED: PANTOPRAZOLE 40 MG TAB PO SCH ×2 (10:00)
[2022-03-24] MEDS ORDERED: AMOXICILLIN/K CLAV 875/125MG TAB PO SCH (10:00)
[2022-03-24] MEDS ORDERED: ASPIRIN 325 MG TAB PO SCH (10:00)
[2022-03-24] MEDS ORDERED: HEPARIN 5,000 UNIT/1 ML VIAL SUB-Q SCH (10:00)
[2022-03-24 14:58] VITALS: BP 152/78
--- NOTE | 2022-03-24 18:34 | Discharge Summary ---
Providers - Providers Date of Admission: 03/24/22 03:40 Date of discharge: 03/24/22 Attending physician: ROEL DAWSON 03/24/22 Consult to Cardiac Rehabilitation [CONS] Routine Reason For Exam: Phase I 03/24/22 03:40 Consult to Cardiology [CONS] Routine Consulting Provider: SAMANTHA BASHIR Reason For Exam: acs Consult to Dietitian/Nutrition [CONS] Routine Physician Instructions: Reason For Exam: Reason for Consult: Diet education Primary care physician: MAXIMO FARNSWORTH Hospitalization Condition: Stable Disposition: 30 STILL A PATIENT Exam - Constitutional Vitals: Temp Pulse Resp BP Pulse Ox 97.3 F L 64 18 152/78 98 03/24/22 05:39 03/24/22 14:57 03/24/22 08:50 03/24/22 14:57 03/24/22 08:50 Plan Follow up with: MAXIMO FARNSWORTH [Primary Care Provider] - 3-5 Days
--- NOTE | 2022-03-25 09:05 | Nuclear Medicine Report ---
APPROVED REPORT Exam: Nuclear Stress Test Indication: Chest pain Patient Location: [address] [place] [address] Room #: A460 Ht: 6 ft 0 in Wt: 255 lbs BSA: 2.36 m2 HR: 55 bpmBP: 162/97 mmHgBMI: 34.58 Rhythm: Sinus Bradycardia Stress Test Details Stress Test: Pharmacologic stress testing performed using 0.4 mg of regadenoson per 5 mL given IV over 10 seconds. Reason for pharmacologic stress test: physical limitation. HR Resting HR: 54 bpm Max HR Achieved: 80 bpm Max Heart Rate (APMHR): 161.648508 bpm Target HR (85% APMHR): 136.039136 bpm % of APMHR: 49.69 Recovery HR: 59 bpm HR response to stress: Normal HR response to stress BP Resting BP: 160/82 mmHg Max BP: 181/103 mmHg Recovery BP: 162/90 mmHg BP response to stress: Abnormal hypertensive response to stress. ECG Resting ECG: Sinus Bradycardia Stress ECG: Sinus Rhythm Arrhythmia: None Recovery ECG: Sinus Rhythm Recovery Arrhythmia: VPC Clinical Reason for Termination: Completed protocol Stress Symptoms: None NM EXAM: Myocardial Perfusion REST/STRESS Imaging Protocol: Rest Tc-99m/Stress Tc-99m 1 day Resting Data Rest SPECT myocardial perfusion imaging was performed in supine position 45 minutes following the intravenous injection of 10 mCi of Tc-99m Myoview. Time of rest injection: 0700 Date: 03/24/2022 Pharmacologic Stress Pharmacologic stress test was performed by injecting Regadenoson 0.4 mg IV push followed by the intravenous injection of 28 mCi of Tc-99m Myoview. Time of stress injection: 10:09:25 Date: 03/24/2022 Gated Stress SPECT was performed 30 minutes after stress injection. The images were gated to evaluate regional wall motion and calculate left ventricular ejection fraction. Study Data TID = 1.12. Perfusion Wall Motion Normal left ventricular size and function with no regional wall motion abnormalities. Nuclear Conclusion ECG Findings: negative for ischemia Clinical Findings: negative for ischemia Nuclear Findings: negative for ischemia Exercise Capacity: not assessed Left Ventricular Function: normal Risk Study: low Normal study. No scintigraphic evidence for myocardial ischemia or scar. Normal left ventricular size and function with no regional wall motion abnormalities.
--- NOTE | 2022-03-25 09:14 | Electrocardiograph Report ---
[facility] Test Date: 2022-03-24 Test Time: 10:20:13 Pat Name: COSTA SWAN Department: Room: A460 1 Gender: M Marble Coper: STALIN : 1960 Requested By: DAPHNEY BETANCOURT Order Number: [id number] Reading MD: Jaime Packer Measurements Intervals Parker Rate: 56 P: 40 DE: 177 QRS: 9 QRSD: 96 T: 11 QT: 441 QTc: 424 Interpretive Statements Sinus rhythm Compared to ECG 03/24/2022 06:50:14 Sinus bradycardia no longer present Electronically Signed On 03-25-2022 9:13:36 EDT by Jaime Packer
[2022-03-25] MEDS ORDERED: ASPIRIN EC 325 MG TAB PO SCH (10:00)
== END 2022-03-25 01:23 | disposition home or self-care (01) ==
LOC: ED 08:30 → INTOOBSV 03-24 03:40 → 4A 03-24 03:40
PROVIDERS: ADMIT Hospitalist; ATTEND Internal Medicine
DX: R07.89 Other chest pain (principal); I10 Essential (primary) hypertension; E11.9 Type 2 diabetes mellitus without complications; E78.5 Hyperlipidemia, unspecified; I24.9 Acute ischemic heart disease, unspecified; J18.9 Pneumonia, unspecified organism; E66.01 Morbid (severe) obesity due to excess calories; F17.210 Nicotine dependence, cigarettes, uncomplicated; Z79.899 Other long term (current) drug therapy; Z98.890 Other specified postprocedural states; Z79.84 Long term (current) use of oral hypoglycemic drugs; Z79.82 Long term (current) use of aspirin; Z68.34 Body mass index [BMI] 34.0-34.9, adult
CPT/HCPCS: 36415; 71046; 78452; 80048; 80053; 82962; 84484; 85025; 93005; 93017; 99285; 99406; A9502; C8929; G0378; J2785; 93306